=== PATIENT | female | born 1940 | race Caucasian/White ===

== ENCOUNTER 2017-10-22 17:32 | Inpatient (IN) | payer MEDICARE, OTHER ==
[2017-10-22] MEDS ORDERED: Sodium Chloride 0.9% 10 ML Syringe FLUSH PRN (20:34)
[2017-10-22] MEDS ORDERED: Iopamidol 755 Mg/ML 100 ML Bottle IVPUSH ONE (21:10)
--- NOTE | 2017-10-22 21:20 | EDM.PDOC ---
ED HPI GENERAL MEDICAL PROBLEM - General Chief Complaint: Diabetic Complaint Stated Complaint: UNABLE TO EAT AND FOOT IS INFECTED Time Seen by Provider: 10/22/17 20:20 Source of Information: Reports: Patient History Limitations: Reports: No Limitations - History of Present Illness INITIAL COMMENTS - FREE TEXT/NARRATIVE: 77-year-old female presents for evaluation and treatment and ulcer to her right foot. States that the ulcer has only been present for a few days. She did see podiatry, Dr. Shook, and was instructed to put salve on it. She has now been seeing physical therapy. She was told that it was infected today and instructed to come to the ER for antibiotics. She denies any fevers, chills, nausea or vomiting. Reports associated symptoms of decreased appetite. Reports that she has diabetic neuropathy and cannot feel any pain, numbness or tingling to the extremity. States that she had an ulcer to this area several months ago. Reports took about a month to heal. Patient is a diabetic. Sugars have been running in 200s. Primary care providers Dr. bergeron. - Related Data Allergies Allergy/AdvReac Type Severity Reaction Status Date / Time No Known Allergies Allergy Verified 10/22/17 17:59 Home Meds: Home Meds Furosemide [Lasix] 60 mg PO DAILY 11/16/13 [History] Insulin Lispro Prot/Lispro [HumaLOG Mix 75-25] 0 unit SQ DAILY PRN 11/16/13 [ History] Isosorbide Mononitrate [Imdur] 60 mg PO DAILY 11/16/13 [History] Levothyroxine [Levothroid] 137 mcg PO DAILY 11/16/13 [History] Metoprolol Tartrate 25 mg PO BID 11/16/13 [History] Rosuvastatin [Crestor] 5 mg PO DAILY 11/16/13 [History] Allopurinol [Zyloprim] 100 mg PO DAILY 07/28/14 [History] Aspirin [Halfprin] 81 mg PO DAILY 07/28/14 [History] Biotin 10,000 mcg PO DAILY 07/28/14 [History] Ca Carb & Gluc/Mag Ox & Gluc [Calcium Magnesium Caplet] 1 tab PO TID 07/28/14 [ History] Cholecalciferol (Vitamin D3) [D3-2000] 1,000 unit PO DAILY 07/28/14 [History] Linagliptin [Tradjenta] 5 mg PO DAILY 07/28/14 [History] Fenofibrate Nanocrystallized [Tricor] 145 mg PO DAILY 10/22/17 [History] Insulin Aspart [NovoLOG] 0 unit SQ WITHMEALSANDBED 10/22/17 [History] Ramipril [Altace] 5 mg PO BEDTIME 10/22/17 [History] Past Medical History HEENT History: Reports: Impaired Vision Cardiovascular History: Reports: Hypertension Other Cardiovascular History: PTCA with stent Genitourinary History: Reports: None Musculoskeletal History: Reports: Arthritis Endocrine/Metabolic History: Reports: Diabetes, Type II, Hypothyroidism Other Endocrine/Metabolic History: Hypothyroidism - Past Surgical History HEENT Surgical History: Reports: Cataract Surgery Female Surgical History: Reports: Hysterectomy Musculoskeletal Surgical History: Reports: Carpal Tunnel Other Musculoskeletal Surgeries/Procedures:: Bilateral hand carpal tunnel surgery Social & Family History - Family History Family Medical History: Noncontributory - Tobacco Use Smoking Status *Q: Former Smoker Used Tobacco, but Quit: Yes Month/Year Tobacco Last Used: 1997 - Caffeine Use Caffeine Use: Reports: Coffee Other Caffeine Use: daily - Recreational Drug Use Recreational Drug Use: No ED ROS GENERAL - Review of Systems Review Of Systems: See Below Constitutional: Denies: Fever, Chills GI/Abdominal: Denies: Nausea, Vomiting Musculoskeletal: Denies: Foot Pain Skin: Reports: Wound (Ulcer to the right foot) Neurological: Denies: Numbness, Tingling ED EXAM GENERAL NO PERIP PULSE - Physical Exam Exam: See Below Exam Limited By: No Limitations General Appearance: Alert, WD/WN, No Apparent Distress Respiratory/Chest: No Respiratory Distress, Lungs Clear, Normal Breath Sounds Cardiovascular: Normal Peripheral Pulses (1+ dorsalis pedis and posterior tib pulses bilaterally), Regular Rate, Rhythm, No Murmur Neurological: Alert, Oriented, Normal Cognition Psychiatric: Normal Affect, Normal Mood Skin Exam: Warm, Dry, Normal Color, Wound/Incision (Approximately 2 cm in diameter ulcerative wound to the ventral, medial, right foot areas purulent and draining. Surrounding erythema and swelling.) Course - Vital Signs Last Recorded V/S: Last Vital Signs Temp 98.9 F 10/22/17 17:54 Pulse 62 10/22/17 17:54 Resp 15 10/22/17 17:54 BP 113/54 L 10/22/17 17:54 Pulse Ox 93 L 10/22/17 17:54 - Orders/Labs/Meds Orders: Active Orders 24 hr Category Date Time Status Foot w Cont Rt [CT] Stat Exams 10/22/17 20:47 Taken CULTURE ANAEROBIC + SMEAR [RM] Stat Lab 10/22/17 20:52 Received CULTURE BLOOD [BC] Stat Lab 10/22/17 21:21 Received CULTURE BLOOD [BC] Stat Lab 10/22/17 21:30 Received CULTURE WOUND [RM] Stat Lab 10/22/17 20:52 Received UA W/MICROSCOPIC [URIN] Stat Lab 10/22/17 21:50 Ordered Sodium Chloride 0.9% [Saline Flush] Med 10/22/17 20:34 Active 10 ml FLUSH ASDIRECTED PRN Blood Culture x2 Reflex Set [OM.PC] Stat Oth 10/22/17 20:31 Ordered Peripheral IV Insertion Adult [OM.PC] Routine Oth 10/22/17 20:34 Ordered Medication Orders Sodium Chloride (Saline Flush) 10 ml FLUSH ASDIRECTED PRN PRN Reason: Keep Vein Open Last Admin: 10/22/17 21:08 Dose: 10 ml Labs: Laboratory Tests 10/22/17 10/22/17 10/22/17 Range/Units 19:25 20:10 21:10 WBC 9.52 (3.98-10.04) K/mm3 RBC 3.86 L (3.98-5.22) M/mm3 Hgb 11.4 (11.2-15.7) gm/L Hct 33.8 L (34.1-44.9) % MCV 87.6 (79.4-94.8) fl MCH 29.5 (25.6-32.2) pg MCHC 33.7 (32.2-35.5) g/dl RDW Std Deviation 41.4 (36.4-46.3) fL Plt Count 368 (182-369) K/mm3 MPV 8.8 L (9.4-12.3) fl Neutrophils % (Manual) 88 H (40-60) % Band Neutrophils % 0 (0-10) % Lymphocytes % (Manual) 5 L (20-40) % Atypical Lymphs % 0 % Monocytes % (Manual) 7 (2-10) % Eosinophils % (Manual) 0 L (0.7-5.8) % Basophils % (Manual) 0 L (0.1-1.2) Platelet Estimate Adequate Plt Morphology Comment Normal RBC Morph Comment Normal Sodium 133 L (136-145) mEq/L Potassium 3.9 (3.5-5.1) mEq/L Chloride 94 L (98-107) mEq/L Carbon Dioxide 31 (21-32) mEq/L Anion Gap 11.9 (5-15) BUN 47 H (7-18) mg/dL Creatinine 2.2 H (0.55-1.02) mg/dL Est Cr Clr Drug Dosing 18.10 mL/min Estimated GFR (MDRD) 22 (>60) mL/min BUN/Creatinine Ratio 21.4 H (14-18) Glucose 170 H (83-115) mg/dL POC Glucose 176 H (83-110) mg/dL Lactic Acid (0.4-2.0) mmol/L Calcium 9.3 (8.5-10.1) mg/dL Total Bilirubin 0.4 (0.2-1.0) mg/dL AST 37 (15-37) U/L ALT 25 (14-59) U/L Alkaline Phosphatase 50 (46-116) U/L C-Reactive Protein 28.2 H* (<1.0) mg/dL Total Protein 7.6 (6.4-8.2) g/dl Albumin 2.7 L (3.4-5.0) g/dl Globulin 4.9 gm/dL Albumin/Globulin Ratio 0.6 L (1-2) Urine Color (Yellow) Urine Appearance (Clear) Urine pH (5.0-8.0) Ur Specific Comins (1.005-1.030) Urine Protein (Negative) Urine Glucose (UA) (Negative) Urine Ketones (Negative) Urine Occult Blood (Negative) Urine Nitrite (Negative) Urine Bilirubin (Negative) Urine Urobilinogen (0.2-1.0) Ur Leukocyte Esterase (Negative) Urine RBC (0-5) /hpf Urine WBC (0-5) /hpf Ur Epithelial Cells (0-5) /hpf Urine Bacteria (FEW) /hpf Urine Mucus (FEW) /hpf 10/22/17 10/22/17 Range/Units 21:10 21:50 WBC (3.98-10.04) K/mm3 RBC (3.98-5.22) M/mm3 Hgb (11.2-15.7) gm/L Hct (34.1-44.9) % MCV (79.4-94.8) fl MCH (25.6-32.2) pg MCHC (32.2-35.5) g/dl RDW Std Deviation (36.4-46.3) fL Plt Count (182-369) K/mm3 MPV (9.4-12.3) fl Neutrophils % (Manual) (40-60) % Band Neutrophils % (0-10) % Lymphocytes % (Manual) (20-40) % Atypical Lymphs % % Monocytes % (Manual) (2-10) % Eosinophils % (Manual) (0.7-5.8) % Basophils % (Manual) (0.1-1.2) Platelet Estimate Plt Morphology Comment RBC Morph Comment Sodium (136-145) mEq/L Potassium (3.5-5.1) mEq/L Chloride (98-107) mEq/L Carbon Dioxide (21-32) mEq/L Anion Gap (5-15) BUN (7-18) mg/dL Creatinine (0.55-1.02) mg/dL Est Cr Clr Drug Dosing mL/min Estimated GFR (MDRD) (>60) mL/min BUN/Creatinine Ratio (14-18) Glucose (83-115) mg/dL POC Glucose (83-110) mg/dL Lactic Acid 1.4 (0.4-2.0) mmol/L Calcium (8.5-10.1) mg/dL Total Bilirubin (0.2-1.0) mg/dL AST (15-37) U/L ALT (14-59) U/L Alkaline Phosphatase (46-116) U/L C-Reactive Protein (<1.0) mg/dL Total Protein (6.4-8.2) g/dl Albumin (3.4-5.0) g/dl Globulin gm/dL Albumin/Globulin Ratio (1-2) Urine Color Yellow (Yellow) Urine Appearance Clear (Clear) Urine pH 6.0 (5.0-8.0) Ur Specific Comins 1.015 (1.005-1.030) Urine Protein Negative (Negative) Urine Glucose (UA) Negative (Negative) Urine Ketones Negative (Negative) Urine Occult Blood 2+ H (Negative) Urine Nitrite Negative (Negative) Urine Bilirubin Negative (Negative) Urine Urobilinogen 0.2 (0.2-1.0) Ur Leukocyte Esterase 1+ H (Negative) Urine RBC 0-5 (0-5) /hpf Urine WBC 0-5 (0-5) /hpf Ur Epithelial Cells 0-5 (0-5) /hpf Urine Bacteria Few (FEW) /hpf Urine Mucus Not seen (FEW) /hpf Meds: Medications Generic Name Dose Route Start Last Admin Trade Name Freq PRN Reason Stop Dose Admin Sodium Chloride 10 ml 10/22/17 20:34 10/22/17 21:08 Saline Flush FLUSH 10 ml ASDIRECTED PRN Administration Keep Vein Open Discontinued Medications Generic Name Dose Route Start Last Admin Trade Name Freq PRN Reason Stop Dose Admin Sodium Chloride 1,000 mls @ 999 mls/hr 10/22/17 21:54 10/22/17 23:44 Normal Saline IV 10/22/17 22:54 999 mls/hr ONETIME ONE Administration Vancomycin HCl 1.75 gm/ Sodium 500 mls @ 250 mls/hr 10/22/17 22:30 Chloride IV 10/23/17 00:29 ONETIME ONE Vancomycin HCl 1 gm/ Sodium 250 mls @ 250 mls/hr 10/22/17 23:11 10/22/17 23: 44 Chloride IV 10/23/17 00:10 250 mls/hr ONETIME ONE Administration Piperacillin Sod/Tazobactam 100 mls @ 200 mls/hr 10/22/17 23:21 Sod 2.25 gm/ Sodium Chloride IV 10/22/17 23:50 ONETIME ONE Iopamidol 100 ml 10/22/17 21:10 10/22/17 23:07 [id number] (76%) IVPUSH 10/22/17 21:11 100 ml ONETIME ONE Administration - Radiology Interpretation Free Text/Narrative:: CT of the right foot with IV contrast impression per vrad: Large medial ulcer of the forefoot with possible exposed bone noted at the region of the first metatarsal head. Erosion of the first metatarsal head suggesting osteomyelitis. Diffuse soft tissue swelling. No evidence for foreign body. - Re-Assessments/Exams Free Text/Narrative Re-Assessment/Exam: 10/23/17 01:01 I reviewed the labs with the patient. I feel she should be admitted for cellulitis. May require debribement. Likely osteomyelitis. She has received 1 g IV vancomycin. This was corrected from the initial dose of 1.75 g, change due to poor kidney function. Case discussed with Dr. Resendiz, hospitalist on-call. Asked that we add on Zosyn. Will give 2.25g Zosyn for poor renal function. Patient to be admitted to the hospitalist. Will likely have an MRI in the morning. Departure - Departure Time of Disposition: 01:04 Disposition: Admitted As Inpatient 66 Condition: Fair Clinical Impression: Cellulitis, Osteomyelitis, Diabetes - Discharge Information *PRESCRIPTION DRUG MONITORING PROGRAM REVIEWED*: No *COPY OF PRESCRIPTION DRUG MONITORING REPORT IN PATIENT JOO: No - My Orders Last 24 Hours: My Active Orders 10/22/17 20:31 Blood Culture x2 Reflex Set [OM.PC] Stat 10/22/17 20:34 Sodium Chloride 0.9% [Saline Flush] 10 ml FLUSH ASDIRECTED PRN Peripheral IV Insertion Adult [OM.PC] Routine 10/22/17 20:47 Foot w Cont Rt [CT] Stat 10/22/17 20:52 CULTURE ANAEROBIC + SMEAR [RM] Stat CULTURE WOUND [RM] Stat 10/22/17 21:21 CULTURE BLOOD [BC] Stat 10/22/17 21:30 CULTURE BLOOD [BC] Stat 10/22/17 21:50 UA W/MICROSCOPIC [URIN] Stat - Assessment/Plan Last 24 Hours: My Active Orders 10/22/17 20:31 Blood Culture x2 Reflex Set [OM.PC] Stat 10/22/17 20:34 Sodium Chloride 0.9% [Saline Flush] 10 ml FLUSH ASDIRECTED PRN Peripheral IV Insertion Adult [OM.PC] Routine 10/22/17 20:47 Foot w Cont Rt [CT] Stat 10/22/17 20:52 CULTURE ANAEROBIC + SMEAR [RM] Stat CULTURE WOUND [RM] Stat 10/22/17 21:21 CULTURE BLOOD [BC] Stat 10/22/17 21:30 CULTURE BLOOD [BC] Stat 10/22/17 21:50 UA W/MICROSCOPIC [URIN] Stat
[2017-10-22] MEDS ORDERED: Sodium Chloride 0.9% 1,000 ML IV ONE (21:54)
[2017-10-22] MEDS ORDERED: Vancomycin 1.75 GM in Sodium Chloride 0.9% 500 ML IV ONE (22:30)
[2017-10-22] MEDS ORDERED: Piperacillin/Tazobactam 2.25 GM in Sodium Chloride 0.9% 100 ML IV ONE (23:21)
--- NOTE | 2017-10-23 06:57 | PCM.HP ---
H&P History of Present Illness - General Date of Service: 10/23/17 Admit Problem/Dx: Admission Diagnosis/Problem Admission Diagnosis/Problem Cellulitis Source of Information: Patient, Old Records, Provider, RN History Limitations: Reports: No Limitations - History of Present Illness Initial Comments - Free Text/Narative: Sydnee Perez is a 77 yo female who presented to our ED yesterday evening with an ulcer to her right reports that she saw Dr. Kat prior and has been doing that with this for some time. She reports he had been having her put a salve on it and she had been seeing physical therapy. She reports that it had been improving prior, however it became worse the last few days and prior to reporting the ED was told that it looked infected and she needed to be seen for antibiotics. She denied any fever, chills, nausea, vomiting. She did report a decreased appetite. She reports she has fairly severe diabetic neuropathy and has no sensation to either leg. Denies any numbness or tingling. She is a diabetic and reports her sugars are normally in the 200s. On arrival in the ED temp was 98.9. Pulse 62. Respirations 15. BP 113/54. Pulse ox 93%. She was noted to have a 2 cm ulcerative wound to the ventral medial right foot with purulent drainage. There is also associated surrounding erythema and swelling. Labs are obtained: WBC is normal at 9.52. Hemoglobin 11.4. Hematocrit 33.8. She is normocytic. Plus her normal 368,000. Neutrophils were elevated at 88%. There is no bandemia. Sodium was low at 133. Potassium 3.9. Chloride 94. Carbon dioxide 31. Anion gap 11.9. BUN is high at 47. Creatinine is very high at 2.2. EGFR is 22. Glucose is 170. Calcium is 9.3. Total bilirubin 0.4. AST is 37 ALT 25, alkaline phosphatase 50. CRP is very high at 20.2. Albumin is low at 2.7. It is 1.4. UA is negative however 2+ occult blood and 1+ leukoesterase are noted. Few bacteria are seen. She is given a 1 L fluid bolus. She was started on vancomycin and Zosyn. CT of the foot is obtained and interpreted by Dr. Reddy as "1. Soft tissue swelling compatible with cellulitis. Ulcers noted within the medial foot at the level of the first metatarsal. 2. Erosions within the distal first metatarsal head as well as base of the proximal phalanx of the first toe. These erosions are compatible with osteomyelitis. 3. Osteopenia and degenerative change." He carries a history of: Hypertension, PTCA with stent, arthritis, type II DM, hypothyroidism. She is a former smoker who quit in 1987. Her PCP is Dr. Ty. She is subsequently admitted to the medical floor as a full code. - Related Data Allergies/Adverse Reactions: Allergies Allergy/AdvReac Type Severity Reaction Status Date / Time No Known Allergies Allergy Verified 10/22/17 17:59 Home Medications: Home Meds Furosemide [Lasix] 60 mg PO DAILY 11/16/13 [History] Insulin Lispro Prot/Lispro [HumaLOG Mix 75-25] 0 unit SQ DAILY PRN 11/16/13 [ History] Isosorbide Mononitrate [Imdur] 60 mg PO DAILY 11/16/13 [History] Levothyroxine [Levothroid] 137 mcg PO DAILY 11/16/13 [History] Metoprolol Tartrate 25 mg PO BID 11/16/13 [History] Rosuvastatin [Crestor] 5 mg PO DAILY 11/16/13 [History] Allopurinol [Zyloprim] 100 mg PO DAILY 07/28/14 [History] Aspirin [Halfprin] 81 mg PO DAILY 07/28/14 [History] Biotin 10,000 mcg PO DAILY 07/28/14 [History] Ca Carb & Gluc/Mag Ox & Gluc [Calcium Magnesium Caplet] 1 tab PO TID 07/28/14 [ History] Cholecalciferol (Vitamin D3) [D3-2000] 1,000 unit PO DAILY 07/28/14 [History] Linagliptin [Tradjenta] 5 mg PO DAILY 07/28/14 [History] Fenofibrate Nanocrystallized [Tricor] 145 mg PO DAILY 10/22/17 [History] Insulin Aspart [NovoLOG] 0 unit SQ WITHMEALSANDBED 10/22/17 [History] Ramipril [Altace] 5 mg PO BEDTIME 10/22/17 [History] Clopidogrel [Plavix] 75 mg PO DAILY 10/23/17 [History] Insulin Glarg,Human.Rec.Analog [Lantus] 0 unit SUBCUT DAILY 10/23/17 [History] Insulin Glarg,Human.Rec.Analog [Lantus] 10 unit SUBCUT 1700 10/23/17 [History] Insulin Glarg,Human.Rec.Analog [Lantus] 50 unit SUBCUT 1100 10/23/17 [History] traMADol [Ultram] 100 mg PO TID 10/23/17 [History] Past Medical History HEENT History: Reports: Impaired Vision Cardiovascular History: Reports: Hypertension Other Cardiovascular History: PTCA with stent Gastrointestinal History: Reports: None Genitourinary History: Reports: None Other Genitourinary History: "poor kidney function" 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: Musculoskeletal History: Reports: Arthritis Neurological History: Reports: Neuropathy, Diabetic Endocrine/Metabolic History: Reports: Diabetes, Type II, Hypothyroidism Other Endocrine/Metabolic History: Hypothyroidism Immunologic History: Reports: None Dermatologic History: Reports: Other (See Below) Other Dermatologic History: diabetic ulcer - Infectious Disease History Infectious Disease History: Reports: None - Past Surgical History HEENT Surgical History: Reports: Cataract Surgery Female Surgical History: Reports: Hysterectomy Musculoskeletal Surgical History: Reports: Carpal Tunnel Other Musculoskeletal Surgeries/Procedures:: Bilateral hand carpal tunnel surgery Social & Family History - Family History Family Medical History: Noncontributory - Tobacco Use Smoking Status *Q: Former Smoker Years of Tobacco use: 17 Packs/Tins Daily: 1 Used Tobacco, but Quit: Yes Month/Year Tobacco Last Used: 1997 Second Hand Smoke Exposure: No - Caffeine Use Caffeine Use: Reports: Coffee Other Caffeine Use: daily - Recreational Drug Use Recreational Drug Use: No H&P Review of Systems - Review of Systems: Review Of Systems: See Below General: Reports: Decreased Appetite. Denies: Fever, Chills, Malaise, Weakness , Fatigue HEENT: Reports: Post Nasal Drip (chronic ). Denies: Headaches, Sore Throat Pulmonary: Reports: No Symptoms. Denies: Shortness of Breath, Wheezing, Pleuritic Chest Pain, Cough, Sputum Cardiovascular: Reports: No Symptoms. Denies: Chest Pain, Palpitations, Dyspnea on Exertion, Orthopnea, Lightheadedness Gastrointestinal: Reports: No Symptoms. Denies: Abdominal Pain, Constipation, Diarrhea, Nausea, Vomiting Genitourinary: Reports: No Symptoms Musculoskeletal: Reports: No Symptoms, Other (Reports no feeling in legs due to peripheral neuropathy). Denies: Leg Pain, Foot Pain, Joint Pain Skin: Reports: No Symptoms Psychiatric: Reports: No Symptoms Neurological: Reports: No Symptoms Hematologic/Lymphatic: Reports: No Symptoms Immunologic: Reports: No Symptoms Exam - Exam Exam: See Below - Vital Signs Vital Signs: Last Vital Signs Temp 99.0 F 10/23/17 03:57 Pulse 67 10/23/17 03:57 Resp 16 10/23/17 03:57 BP 125/81 10/23/17 03:57 Pulse Ox 98 10/23/17 03:57 Weight: 168 lb 8 oz - Exam Quality Assessment: DVT Prophylaxis General: Alert, Oriented, Cooperative. No: Mild Distress HEENT: Conjunctiva Clear, EACs Clear, EOMI, Hearing Intact, Mucosa Moist & [place] , Nares Patent, Normal Nasal Septum, Posterior Pharynx Clear, PERRLA Neck: Supple, Trachea Midline Lungs: Clear to Auscultation, Normal Respiratory Effort Cardiovascular: Regular Rate, Regular Rhythm GI/Abdominal Exam: Normal Bowel Sounds, Soft, Non-Tender, No Distention (Female) Exam: Deferred Rectal (Female) Exam: Deferred Back Exam: Normal Inspection, Full Range of Motion Extremities: Non-Tender, No Pedal Edema, Normal Capillary Refill, Increased Warmth (right medial foot), Redness (right medial foot ), Other (Color changes felt to be compatable with chronic periphreal vascular disease ) Peripheral Pulses: 1+: Dorsalis Pedis (L), Dorsalis Pedis (R), 2+: Radial (L), Radial (R) Skin: Warm, Dry, Intact, Wound (2cm purulent draining wound on the ventral, medial, right great toe and foot. 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 ) - Patient Data Lab Results Last 24 hrs: Laboratory Results - last 24 hr 10/22/17 10/22/17 10/22/17 Range/Units 19:25 20:10 21:10 WBC 9.52 (3.98-10.04) K/mm3 RBC 3.86 L (3.98-5.22) M/mm3 Hgb 11.4 (11.2-15.7) gm/L Hct 33.8 L (34.1-44.9) % MCV 87.6 (79.4-94.8) fl MCH 29.5 (25.6-32.2) pg MCHC 33.7 (32.2-35.5) g/dl RDW Std Deviation 41.4 (36.4-46.3) fL Plt Count 368 (182-369) K/mm3 MPV 8.8 L (9.4-12.3) fl Neut % (Auto) (34.0-71.1) % Lymph % (Auto) (19.3-51.7) % [place] % (Auto) (4.7-12.5) % Eos % (Auto) (0.7-5.8) Baso % (Auto) (0.1-1.2) % Neut # (Auto) (1.56-6.13) K/mm3 Lymph # (Auto) (1.18-3.74) K/mm3 [place] # (Auto) (0.24-0.36) K/mm3 Eos # (Auto) (0.04-0.36) K/mm3 Baso # (Auto) (0.01-0.08) K/mm3 Neutrophils % (Manual) 88 H (40-60) % Band Neutrophils % 0 (0-10) % Lymphocytes % (Manual) 5 L (20-40) % Atypical Lymphs % 0 % Monocytes % (Manual) 7 (2-10) % Eosinophils % (Manual) 0 L (0.7-5.8) % Basophils % (Manual) 0 L (0.1-1.2) Manual Slide Review Platelet Estimate Adequate Plt Morphology Comment Normal RBC Morph Comment Normal Sodium 133 L (136-145) mEq/L Potassium 3.9 (3.5-5.1) mEq/L Chloride 94 L (98-107) mEq/L Carbon Dioxide 31 (21-32) mEq/L Anion Gap 11.9 (5-15) BUN 47 H (7-18) mg/dL Creatinine 2.2 H (0.55-1.02) mg/dL Est Cr Clr Drug Dosing 18.10 mL/min Estimated GFR (MDRD) 22 (>60) mL/min BUN/Creatinine Ratio 21.4 H (14-18) Glucose 170 H (83-115) mg/dL POC Glucose 176 H (83-110) mg/dL Lactic Acid (0.4-2.0) mmol/L Calcium 9.3 (8.5-10.1) mg/dL Total Bilirubin 0.4 (0.2-1.0) mg/dL AST 37 (15-37) U/L ALT 25 (14-59) U/L Alkaline Phosphatase 50 (46-116) U/L C-Reactive Protein 28.2 H* (<1.0) mg/dL Total Protein 7.6 (6.4-8.2) g/dl Albumin 2.7 L (3.4-5.0) g/dl Globulin 4.9 gm/dL Albumin/Globulin Ratio 0.6 L (1-2) Urine Color (Yellow) Urine Appearance (Clear) Urine pH (5.0-8.0) Ur Specific [place] (1.005-1.030) Urine Protein (Negative) Urine Glucose (UA) (Negative) Urine Ketones (Negative) Urine Occult Blood (Negative) Urine Nitrite (Negative) Urine Bilirubin (Negative) Urine Urobilinogen (0.2-1.0) Ur Leukocyte Esterase (Negative) Urine RBC (0-5) /hpf Urine WBC (0-5) /hpf Ur Epithelial Cells (0-5) /hpf Urine Bacteria (FEW) /hpf Urine Mucus (FEW) /hpf 10/22/17 10/22/17 10/23/17 Range/Units 21:10 21:50 05:08 WBC (3.98-10.04) K/mm3 RBC (3.98-5.22) M/mm3 Hgb (11.2-15.7) gm/L Hct (34.1-44.9) % MCV (79.4-94.8) fl MCH (25.6-32.2) pg MCHC (32.2-35.5) g/dl RDW Std Deviation (36.4-46.3) fL Plt Count (182-369) K/mm3 MPV (9.4-12.3) fl Neut % (Auto) (34.0-71.1) % Lymph % (Auto) (19.3-51.7) % [place] % (Auto) (4.7-12.5) % Eos % (Auto) (0.7-5.8) Baso % (Auto) (0.1-1.2) % Neut # (Auto) (1.56-6.13) K/mm3 Lymph # (Auto) (1.18-3.74) K/mm3 [place] # (Auto) (0.24-0.36) K/mm3 Eos # (Auto) (0.04-0.36) K/mm3 Baso # (Auto) (0.01-0.08) K/mm3 Neutrophils % (Manual) (40-60) % Band Neutrophils % (0-10) % Lymphocytes % (Manual) (20-40) % Atypical Lymphs % % Monocytes % (Manual) (2-10) % Eosinophils % (Manual) (0.7-5.8) % Basophils % (Manual) (0.1-1.2) Manual Slide Review Platelet Estimate Plt Morphology Comment RBC Morph Comment Sodium (136-145) mEq/L Potassium (3.5-5.1) mEq/L Chloride (98-107) mEq/L Carbon Dioxide (21-32) mEq/L Anion Gap (5-15) BUN (7-18) mg/dL Creatinine (0.55-1.02) mg/dL Est Cr Clr Drug Dosing mL/min Estimated GFR (MDRD) (>60) mL/min BUN/Creatinine Ratio (14-18) Glucose (83-115) mg/dL POC Glucose (83-110) mg/dL Lactic Acid 1.4 0.9 (0.4-2.0) mmol/L Calcium (8.5-10.1) mg/dL Total Bilirubin (0.2-1.0) mg/dL AST (15-37) U/L ALT (14-59) U/L Alkaline Phosphatase (46-116) U/L C-Reactive Protein (<1.0) mg/dL Total Protein (6.4-8.2) g/dl Albumin (3.4-5.0) g/dl Globulin gm/dL Albumin/Globulin Ratio (1-2) Urine Color Yellow (Yellow) Urine Appearance Clear (Clear) Urine pH 6.0 (5.0-8.0) Ur Specific [place] 1.015 (1.005-1.030) Urine Protein Negative (Negative) Urine Glucose (UA) Negative (Negative) Urine Ketones Negative (Negative) Urine Occult Blood 2+ H (Negative) Urine Nitrite Negative (Negative) Urine Bilirubin Negative (Negative) Urine Urobilinogen 0.2 (0.2-1.0) Ur Leukocyte Esterase 1+ H (Negative) Urine RBC 0-5 (0-5) /hpf Urine WBC 0-5 (0-5) /hpf Ur Epithelial Cells 0-5 (0-5) /hpf Urine Bacteria Few (FEW) /hpf Urine Mucus Not seen (FEW) /hpf 10/23/17 10/23/17 Range/Units 05:16 06:30 WBC 8.16 (3.98-10.04) K/mm3 RBC 3.52 L (3.98-5.22) M/mm3 Hgb 10.1 L (11.2-15.7) gm/L Hct 30.9 L (34.1-44.9) % MCV 87.8 (79.4-94.8) fl MCH 28.7 (25.6-32.2) pg MCHC 32.7 (32.2-35.5) g/dl RDW Std Deviation 41.0 (36.4-46.3) fL Plt Count 331 (182-369) K/mm3 MPV 9.1 L (9.4-12.3) fl Neut % (Auto) 71.5 H (34.0-71.1) % Lymph % (Auto) 11.8 L (19.3-51.7) % [place] % (Auto) 15.9 H (4.7-12.5) % Eos % (Auto) 0.5 L (0.7-5.8) Baso % (Auto) 0.1 (0.1-1.2) % Neut # (Auto) 5.83 (1.56-6.13) K/mm3 Lymph # (Auto) 0.96 L (1.18-3.74) K/mm3 [place] # (Auto) 1.30 H (0.24-0.36) K/mm3 Eos # (Auto) 0.04 (0.04-0.36) K/mm3 Baso # (Auto) 0.01 (0.01-0.08) K/mm3 Neutrophils % (Manual) (40-60) % Band Neutrophils % (0-10) % Lymphocytes % (Manual) (20-40) % Atypical Lymphs % % Monocytes % (Manual) (2-10) % Eosinophils % (Manual) (0.7-5.8) % Basophils % (Manual) (0.1-1.2) Manual Slide Review Normal smear Platelet Estimate Plt Morphology Comment RBC Morph Comment Sodium (136-145) mEq/L Potassium (3.5-5.1) mEq/L Chloride (98-107) mEq/L Carbon Dioxide (21-32) mEq/L Anion Gap (5-15) BUN (7-18) mg/dL Creatinine (0.55-1.02) mg/dL Est Cr Clr Drug Dosing mL/min Estimated GFR (MDRD) (>60) mL/min BUN/Creatinine Ratio (14-18) Glucose (83-115) mg/dL POC Glucose 191 H (83-110) mg/dL Lactic Acid (0.4-2.0) mmol/L Calcium (8.5-10.1) mg/dL Total Bilirubin (0.2-1.0) mg/dL AST (15-37) U/L ALT (14-59) U/L Alkaline Phosphatase (46-116) U/L C-Reactive Protein (<1.0) mg/dL Total Protein (6.4-8.2) g/dl Albumin (3.4-5.0) g/dl Globulin gm/dL Albumin/Globulin Ratio (1-2) Urine Color (Yellow) Urine Appearance (Clear) Urine pH (5.0-8.0) Ur Specific [place] (1.005-1.030) Urine Protein (Negative) Urine Glucose (UA) (Negative) Urine Ketones (Negative) Urine Occult Blood (Negative) Urine Nitrite (Negative) Urine Bilirubin (Negative) Urine Urobilinogen (0.2-1.0) Ur Leukocyte Esterase (Negative) Urine RBC (0-5) /hpf Urine WBC (0-5) /hpf Ur Epithelial Cells (0-5) /hpf Urine Bacteria (FEW) /hpf Urine Mucus (FEW) /hpf Result Diagrams: 10/23/17 05:16 10/23/17 05:16 - Problem List (1) Osteomyelitis SNOMED Code(s): 00820867 ICD Code: M86.9 - OSTEOMYELITIS, UNSPECIFIED Status: Suspected Priority: High Current Visit: Yes Qualifiers: Osteomyelitis type: unspecified type Osteomyelitis location: foot Laterality: right Qualified Code(s): M86.9 - Osteomyelitis, unspecified (2) Cellulitis SNOMED Code(s): 276330267 ICD Code: L03.90 - CELLULITIS, UNSPECIFIED Status: Acute Priority: High Current Visit: Yes Qualifiers: Site of cellulitis of extremity: lower extremity Laterality: right (3) HTN (hypertension) SNOMED Code(s): 41751938 ICD Code: I10 - ESSENTIAL (PRIMARY) HYPERTENSION Status: Chronic Priority : Medium Current Visit: No Qualifiers: Hypertension type: unspecified Qualified Code(s): I10 - Essential (primary ) hypertension (4) CAD (coronary artery disease) SNOMED Code(s): 55718388 ICD Code: I25.10 - ATHSCL HEART DISEASE OF [place] CORONARY ARTERY W/O ANG PCTRS Status: Chronic Priority: Medium Current Visit: No Qualifiers: Coronary Disease-Associated Artery/Lesion type: unspecified vessel or lesion type [place] vs. transplanted heart: unspecified whether [place] or transplanted heart Associated angina: angina presence unspecified Qualified Code(s): I25.10 - Atherosclerotic heart disease of [place] coronary artery without angina pectoris (5) Arthritis SNOMED Code(s): 9411701 ICD Code: M19.90 - UNSPECIFIED OSTEOARTHRITIS, UNSPECIFIED SITE Status: Chronic Priority: Low Current Visit: No (6) Hypothyroidism SNOMED Code(s): 70902593 ICD Code: E03.9 - HYPOTHYROIDISM, UNSPECIFIED Status: Chronic Priority: Low Current Visit: No Qualifiers: Hypothyroidism type: unspecified Qualified Code(s): E03.9 - Hypothyroidism , unspecified (7) Diabetes SNOMED Code(s): 46724852 ICD Code: E11.9 - TYPE 2 DIABETES MELLITUS WITHOUT COMPLICATIONS Status: Chronic Priority: Medium Current Visit: Yes Qualifiers: Diabetes mellitus type: type 2 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 Diabetes mellitus complication status: with neurologic complications Diabetes mellitus complication detail: with unspecified neuropathy Qualified Code(s): E11.40 - Type 2 diabetes mellitus with diabetic neuropathy, unspecified; Z79.4 - intermediate accountant (current) use of insulin (8) Peripheral neuropathy SNOMED Code(s): 287956969 ICD Code: G62.9 - POLYNEUROPATHY, UNSPECIFIED Status: Chronic Priority: High Current Visit: Yes Qualifiers: Peripheral neuropathy type: polyneuropathy, unspecified Qualified Code(s): G62.9 - Polyneuropathy, unspecified (9) CKD (chronic kidney disease) stage 4, GFR 15-29 ml/min SNOMED Code(s): 754448387 ICD Code: N18.4 - CHRONIC KIDNEY DISEASE, STAGE 4 (SEVERE) Status: Acute Current Visit: Yes (10) Hyponatremia SNOMED Code(s): 39690889 ICD Code: E87.1 - HYPO-OSMOLALITY AND HYPONATREMIA Status: Acute Current Visit: Yes Problem List Initiated/Reviewed/Updated: Yes Orders Last 24hrs: Active Orders 24 hr Category Date Time Status Admission Status [Patient Status] [ADT] Routine ADT 10/22/17 23:29 Active Activity as Tolerated [RC] BID Care 10/23/17 01:23 Active Blood Glucose Check, Bedside [RC] QIDACANDBED Care 10/23/17 01:19 Active ADA Diabetic [[place] [employer] Diet] [DIET Diet 10/23/17 Breakfast Active ] Heart Healthy Diet [DIET] Diet 10/23/17 Breakfast Active Foot w Cont Rt [CT] Stat Exams 10/22/17 20:47 Taken BASIC METABOLIC PANEL,BMP [CHEM] Routine Lab 10/23/17 05:16 Received CRP [C-REACTIVE PROTEIN] [CHEM] Routine Lab 10/23/17 05:16 Received CULTURE ANAEROBIC + SMEAR [RM] Stat Lab 10/22/17 20:52 Received CULTURE BLOOD [BC] Stat Lab 10/22/17 21:21 Received CULTURE BLOOD [BC] Stat Lab 10/22/17 21:30 Received CULTURE WOUND [RM] Stat Lab 10/22/17 20:52 Received MG [MAGNESIUM] [CHEM] Routine Lab 10/23/17 05:16 Received UA W/MICROSCOPIC [URIN] Stat Lab 10/22/17 21:50 Ordered Enoxaparin [Lovenox] Med 10/23/17 09:00 Pending 40 mg SUBCUT DAILY Insulin Lispro [HumaLOG] Med 10/23/17 07:00 Active See Dose Instructions SUBCUT QIDACANDBED Piperacillin/Tazobactam [Zosyn] 4.5 gm Med 10/23/17 13:30 Active Sodium Chloride 0.9% [Normal Saline] 100 ml IV Q12H Sodium Chloride 0.9% [Saline Flush] Med 10/22/17 20:34 Active 10 ml FLUSH ASDIRECTED PRN Vancomycin Pharmacy to Dose [Pharmacy to Dose - Med 10/23/17 01:30 Pending Vancomycin] 1 dose .XX ASDIRECTED Blood Culture x2 Reflex Set [OM.PC] Stat Oth 10/22/17 20:31 Ordered Peripheral IV Insertion Adult [OM.PC] Routine Oth 10/22/17 20:34 Ordered Resuscitation Status Routine Resus Stat 10/23/17 00:48 Ordered Medication Orders Enoxaparin Sodium (Lovenox) 40 mg SUBCUT DAILY [facility] Piperacillin Sod/Tazobactam (Sod 4.5 gm/ Sodium Chloride) 100 mls @ 25 mls/hr IV Q12H [facility] Insulin Human Lispro (Humalog) 0 unit SUBCUT QIDACANDBED [facility]IANO; Protocol Sodium Chloride (Saline Flush) 10 ml FLUSH ASDIRECTED PRN PRN Reason: Keep Vein Open Last Admin: 10/22/17 21:08 Dose: 10 ml Vancomycin HCl (Pharmacy To Dose - Vancomycin) 1 dose .XX ASDIRECTED [facility] Assessment/Plan Comment:: I/P: Cellulitis of right foot with suspected osteomyelitis -Reports she has had ulcers on right ventral and medial right foot prior -Has been seeing Dr. Brown (podiatry) for this - he prescribed a salve -Has been seeing PT for woundcare -Denies fever or any other infectious symptoms, however has had decreased appetite -Approximately 2cm wound with purulent drainage. -Risk factors: Diabetic, history of CAD, peripheral neuropathy with no sensation to either leg -Blood sugars have been in the 200's; A1C 7.7 -No leukocytosis, CRP 28.2-->20.5 -Lactic acid WNL -Blood cultures obtained and pending -Wound cultures obtained and pending -Vancomycin and zosyn started in ED - continue -CT Scan on 10/22/17: 1. Soft tissue swelling compatible with cellulitis. Ulcers noted within the medial foot at the level of first metatarsal. 2. Erosions within the distal first metatarsal head as well as the basal proximal found except of the first toe. These erosions are compatible with osteomyelitis. 3. Osteopenia and degenerative change. -MRI ordered for 10/23/17 -Probiotic -Wound care daily as directed -PT/OT -Dr. Beckett (orthopedics) consulted CKD stage 4 -Unsure of baseline - obtain old records -BUN 47-->42 -Creatinine 2.2-->2.0 -eGFR 22-->24 -Will switch from lovenox to heparin -Hold ACEI -Home PO lasix for now -IV fluids as ordered Hyponatremia, mild -Sodium 133-->134 -IV fluids as ordered -Monitor Chronic: CAD HTN Arthritis Type II DM Hypothyroidism Plan: Admit to medical floor Other orders as indicated above SS insulin in addition to home long acting insulin Home medications as ordered Routine AM labs Contact precautions Obtain old records DVT/PE Prophylaxis: Heparin Code status: Full code; PCP: Dr. Ty
[2017-10-23] MEDS ORDERED: Piperacillin/Tazobactam 4.5 GM in Sodium Chloride 0.9% 100 ML IV SCH (07:00)
--- NOTE | 2017-10-23 08:13 | CT ---
CT right foot Technique: Multiple axial sections through the right foot were obtained. Reconstructed coronal and sagittal images were reviewed. Findings: Severe joint space narrowing is noted within the midfoot and particularly at the tarsometatarsal joints. Diffuse soft tissue swelling is seen within the foot. Soft tissue ulceration is identified within the medial foot at the level of the first metatarsal head. There is erosion being seen within the metatarsal head with cortical destruction at the level of the ulcer which is felt compatible with osteomyelitis. Additional erosions are seen at the base of the proximal phalanx which is felt compatible with additional area of osteomyelitis. Other bony structures are osteopenic but show no acute erosions. Plantar spur is noted. Impression: 1. Soft tissue swelling compatible with cellulitis. Ulcer is noted within the medial foot at the level of the first metatarsal. 2. Erosions within the distal first metatarsal head as well as base of the proximal phalanx of the first toe. These erosions are compatible with osteomyelitis. 3. Osteopenia and degenerative change. Diagnostic code #5 Agree with preliminary report issued by [facility] ([facility] preliminary report dictated on 10/23/17, 12:57 AM Central Time) [facility]
[2017-10-23] MEDS: Insulin Lispro 100 Unit/ML 3 ML KwikPen SUBCUT SCH ×4 (08:16→21:25)
[2017-10-23] MEDS ORDERED: Ondansetron 4 MG Tab.DIS PO PRN (08:37)
[2017-10-23] MEDS ORDERED: Acetaminophen 325 MG Tab PO PRN (08:37)
[2017-10-23] MEDS ORDERED: Ondansetron 4 MG/2 ML SDV IV PRN (08:37)
[2017-10-23] MEDS ORDERED: Acetaminophen/HYDROcodone 325-5 MG Tab PO PRN (08:37)
[2017-10-23] MEDS ORDERED: hydrALAZINE 20 MG/ML SDV IVPUSH PRN (08:40)
[2017-10-23] MEDS ORDERED: Metoprolol Tartrate 5 MG/5 ML SDV IVPUSH PRN (08:40)
[2017-10-23] MEDS ORDERED: Enoxaparin 30 MG/0.3 ML Syringe SUBCUT SCH (09:00)
[2017-10-23] MEDS: Sodium Chloride 0.9% 1,000 ML IV SCH (09:15)
[2017-10-23] MEDS: Metoprolol Tartrate 25 MG Tab PO SCH ×2 (09:24→21:25)
[2017-10-23] MEDS: Fenofibrate Nanocrystallized 145 MG Tab PO SCH (09:24)
[2017-10-23] MEDS: Furosemide 40 MG Tab PO SCH (09:25)
[2017-10-23] MEDS: Clopidogrel 75 MG Tab PO SCH (09:25)
[2017-10-23] MEDS: Saccharomyces Boulardii (Probiotic) 250 MG Cap PO SCH (09:25)
[2017-10-23] MEDS: Rosuvastatin 10 MG Tab PO SCH (09:26)
[2017-10-23] MEDS: Aspirin 81 MG Tab.EC PO SCH (09:26)
[2017-10-23] MEDS: Isosorbide Mononitrate 60 MG Tab.ER PO SCH (09:26)
[2017-10-23] MEDS: Allopurinol 100 MG Tab PO SCH (09:26)
[2017-10-23] MEDS: Insulin Glargine,Human Rec. Analog 100 Units/ML 3 ML Pen SUBCUT SCH ×2 (12:01→17:24)
[2017-10-23] MEDS ORDERED: LORazepam 2 MG/ML SDV IVPUSH PRN (13:42)
[2017-10-23] MEDS ORDERED: traMADol 50 MG Tab PO PRN (15:00)
[2017-10-23] MEDS: Piperacillin/Tazobactam 4.5 GM in Sodium Chloride 0.9% 100 ML IV SCH (15:01)
--- NOTE | 2017-10-23 18:09 | PCM.SN ---
- Free Text/Narrative Note: Patient seen with family at bedside. Updated family with her permission. Informed them about her diagnosis, clinical status and treatment plan. She has not already been seen and evaluated by Dr. Beckett sometime late this afternoon. The plan a this point is medical management.
[2017-10-24] MEDS: Sodium Chloride 0.9% 1,000 ML IV SCH (01:21)
[2017-10-24] MEDS: Piperacillin/Tazobactam 4.5 GM in Sodium Chloride 0.9% 100 ML IV SCH ×2 (01:23→13:58)
[2017-10-24] MEDS: Insulin Lispro 100 Unit/ML 3 ML KwikPen SUBCUT SCH ×4 (06:29→21:39)
--- NOTE | 2017-10-24 06:40 | PCM.PN ---
- General Info Date of Service: 10/24/17 Admission Dx/Problem (Free Text): Admission Diagnosis/Problem Admission Diagnosis/Problem Cellulitis Subjective Update: In to see Sydnee. We discussed what Dr. Beckett had said and her need for long- term antibiotics. She was upset with me as we decreased her tramadol frequency due to kidney function and she had some pretty substantial leg pain last night. Her creatinine is down to 1.6 today although she did receive IV fluid since admission. 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 She discussed risk vs. benefit of PICC and decision was made to follow lab values tomorrow and make a game plan. Regardless she will likely need long-term IV antibiotics for some time. Awaiting culture sensitivities. Dr. Beckett ordered PT wound care. Will continue current treatment. Updated patient on plan and answered questions. No concerns from nursing. Functional Status: Reports: Pain Controlled, Tolerating Diet, Ambulating, Urinating. Denies: New Symptoms - Review of Systems General: Reports: Appetite (improving ). Denies: Fever, Weakness, Fatigue, Malaise, Chills HEENT: Reports: No Symptoms. Denies: Sore Throat Pulmonary: Reports: No Symptoms. Denies: Shortness of Breath, Cough, Sputum, Wheezing Cardiovascular: Reports: No Symptoms. Denies: Chest Pain Gastrointestinal: Reports: No Symptoms. Denies: Abdominal Pain, Constipation, Diarrhea, Nausea, Vomiting Genitourinary: Reports: No Symptoms Musculoskeletal: Reports: Leg Pain (Worse overnight due to RLS. Improved to resolved today. ) Skin: Reports: No Symptoms Neurological: Reports: No Symptoms. Denies: Confusion Psychiatric: Reports: No Symptoms - Patient Data Vitals - Most Recent: Last Vital Signs Temp 99.1 F 10/24/17 04:42 Pulse 68 10/24/17 04:42 Resp 20 10/24/17 04:42 BP 107/75 10/24/17 04:42 Pulse Ox 95 10/24/17 04:42 Weight - Most Recent: 171 lb 2 oz I&O - Last 24 Hours: Intake & Output 10/23/17 10/23/17 10/24/17 14:59 22:59 06:59 Intake Total [phone] Output Total 1500 1700 Balance 120 -834 408 Lab Results Last 24 Hours: Laboratory Results - last 24 hr 10/23/17 10/23/17 10/23/17 Range/Units 05:16 05:16 11:13 Sodium 134 L (136-145) mEq/L Potassium 3.6 (3.5-5.1) mEq/L Chloride 98 (98-107) mEq/L Carbon Dioxide 28 (21-32) mEq/L Anion Gap 11.6 (5-15) BUN 42 H (7-18) mg/dL Creatinine 2.0 H (0.55-1.02) mg/dL Est Cr Clr Drug Dosing 16.92 mL/min Estimated GFR (MDRD) 24 (>60) mL/min BUN/Creatinine Ratio 21.0 H (14-18) Glucose 207 H (83-115) mg/dL POC Glucose 284 H (83-110) mg/dL Hemoglobin A1c 7.70 H (4.50-6.20) % Calcium 8.6 (8.5-10.1) mg/dL Magnesium 2.2 (1.8-2.4) mg/dl C-Reactive Protein 20.5 H* (<1.0) mg/dL 10/23/17 10/23/17 Range/Units 16:43 21:07 Sodium (136-145) mEq/L Potassium (3.5-5.1) mEq/L Chloride (98-107) mEq/L Carbon Dioxide (21-32) mEq/L Anion Gap (5-15) BUN (7-18) mg/dL Creatinine (0.55-1.02) mg/dL Est Cr Clr Drug Dosing mL/min Estimated GFR (MDRD) (>60) mL/min BUN/Creatinine Ratio (14-18) Glucose (83-115) mg/dL POC Glucose 207 H 283 H (83-110) mg/dL Hemoglobin A1c (4.50-6.20) % Calcium (8.5-10.1) mg/dL Magnesium (1.8-2.4) mg/dl C-Reactive Protein (<1.0) mg/dL Glenn Results Last 24 Hours: Microbiology 10/22/17 21:30 Aerobic Blood Culture - Preliminary Blood - Venous - Lab Draw NO GROWTH AFTER 1 DAY Anaerobic Blood Culture - Preliminary NO GROWTH AFTER 1 DAY 10/22/17 21:21 Aerobic Blood Culture - Preliminary Blood - Venous NO GROWTH AFTER 1 DAY Anaerobic Blood Culture - Preliminary Gram Positive Cocci 10/22/17 20:52 Gram Stain - Final Foot, Left Anaerobic Culture - Preliminary Staphylococcus Aureus Med Orders - Current: Current Medications Acetaminophen (Tylenol) 650 mg PO Q4H PRN PRN Reason: Pain (Mild 1-3)/fever Hydrocodone Bitart/Acetaminophen ([place] 325-5 Mg) 1 tab PO Q4H PRN PRN Reason: Pain (moderate 4-6) Last Admin: 10/23/17 21:37 Dose: 1 tab Allopurinol (Zyloprim) 100 mg PO DAILY [facility] Last Admin: 10/23/17 09:26 Dose: 100 mg Aspirin (Halfprin) 81 mg PO DAILY [facility] Last Admin: 10/23/17 09:26 Dose: 81 mg Clopidogrel Bisulfate (Plavix) 75 mg PO DAILY [facility] Last Admin: 10/23/17 09:25 Dose: 75 mg Fenofibrate (Tricor) 145 mg PO DAILY [facility] Last Admin: 10/23/17 09:24 Dose: 145 mg Furosemide (Lasix) 60 mg PO DAILY [facility] Last Admin: 10/23/17 09:25 Dose: 60 mg Heparin Sodium (Porcine) (Heparin Sodium) 5,000 units SUBCUT Q8H [facility] Hydralazine HCl (Apresoline) 20 mg IVPUSH Q4H PRN PRN Reason: Hypertension Piperacillin Sod/Tazobactam (Sod 4.5 gm/ Sodium Chloride) 100 mls @ 25 mls/hr IV Q12H [facility] Last Admin: 10/24/17 01:23 Dose: 25 mls/hr Sodium Chloride (Normal Saline) 1,000 mls @ 75 mls/hr IV ASDIRECTED [facility] Stop: 10/24/17 11:00 Last Admin: 10/24/17 01:21 Dose: 75 mls/hr Vancomycin HCl 1 gm/ Sodium (Chloride) 250 mls @ 250 mls/hr IV Q24H [facility] Last Admin: 10/23/17 22:36 Dose: 250 mls/hr Insulin Glargine (Lantus Solostar) 10 units SUBCUT 1700 [facility] Last Admin: 10/23/17 17:24 Dose: 10 units Insulin Glargine (Lantus Solostar) 50 units SUBCUT 1100 [facility] Last Admin: 10/23/17 12:01 Dose: 50 units Insulin Human Lispro (Humalog) 0 unit SUBCUT QIDACANDBED [facility]; Protocol Last Admin: 10/24/17 06:29 Dose: Not Given Isosorbide Mononitrate (Imdur) 60 mg PO DAILY [facility] Last Admin: 10/23/17 09:26 Dose: 60 mg Levothyroxine Sodium (Levothroid) 137 mcg PO ACBREAKFAST [facility] Last Admin: 10/24/17 06:27 Dose: 137 mcg Lorazepam (Ativan) 0.5 mg IVPUSH Q6H PRN PRN Reason: Anxiety Magnesium Sulfate (Pharmacy To Dose - Magnesium Replacement) 1 dose .XX ASDIRECTED [facility] Metoprolol Tartrate (Lopressor) 5 mg IVPUSH Q4H PRN PRN Reason: Tachycardia Metoprolol Tartrate (Lopressor) 25 mg PO BID [facility] Last Admin: 10/23/17 21:25 Dose: 25 mg Ondansetron HCl (Zofran Odt) 4 mg PO Q6H PRN PRN Reason: nausea, able to take PO Ondansetron HCl (Zofran) 4 mg IV Q6H PRN PRN Reason: Nausea/Vomiting Potassium Chloride (Pharmacy To Dose - Potassium Replacement) 1 dose .XX ASDIRECTED [facility] Rosuvastatin Calcium (Crestor) 5 mg PO DAILY [facility] Last Admin: 10/23/17 09:26 Dose: 5 mg Saccharomyces Boulardii (Florastor) 250 mg PO DAILY [facility] Last Admin: 10/23/17 09:25 Dose: 250 mg Sodium Chloride (Saline Flush) 10 ml FLUSH ASDIRECTED PRN PRN Reason: Keep Vein Open Last Admin: 10/22/17 21:08 Dose: 10 ml Tramadol HCl (Ultram) 100 mg PO Q12H PRN PRN Reason: pain Last Admin: 10/23/17 14:59 Dose: 100 mg Vancomycin HCl (Pharmacy To Dose - Vancomycin) 0 dose .XX ASDIRECTED PRN PRN Reason: RX TO DOSE VANCO Discontinued Medications Enoxaparin Sodium (Lovenox) 30 mg SUBCUT DAILY [facility] Last Admin: 10/23/17 08:17 Dose: 30 mg Sodium Chloride (Normal Saline) 1,000 mls @ 999 mls/hr IV ONETIME ONE Stop: 10/22/17 22:54 Last Admin: 10/22/17 23:44 Dose: 999 mls/hr Vancomycin HCl 1.75 gm/ Sodium (Chloride) 500 mls @ 250 mls/hr IV ONETIME ONE Stop: 10/23/17 00:29 Last Admin: 10/23/17 01:34 Dose: Not Given Vancomycin HCl 1 gm/ Sodium (Chloride) 250 mls @ 250 mls/hr IV ONETIME ONE Stop: 10/23/17 00:10 Last Admin: 10/22/17 23:44 Dose: 250 mls/hr Piperacillin Sod/Tazobactam (Sod 2.25 gm/ Sodium Chloride) 100 mls @ 200 mls/ hr IV ONETIME ONE Stop: 10/22/17 23:50 Last Admin: 10/23/17 01:31 Dose: 200 mls/hr Piperacillin Sod/Tazobactam (Sod 4.5 gm/ Sodium Chloride) 100 mls @ 25 mls/hr IV Q8H [facility] Iopamidol (Isovue-370 (76%)) 100 ml IVPUSH ONETIME ONE Stop: 10/22/17 21:11 Last Admin: 10/22/17 23:07 Dose: 100 ml Linagliptin [ (Tradjenta] 5 Mg) 0 each PO DAILY [facility] Last Admin: 10/23/17 09:29 Dose: Not Given - Exam Quality Assessment: DVT Prophylaxis General: Alert, Oriented, Cooperative, No Acute Distress HEENT: Pupils Equal, Pupils Reactive, EOMI, Mucous Membr. Moist/[place] Neck: Supple, Trachea Midline, No JVD Lungs: Clear to Auscultation, Normal Respiratory Effort Cardiovascular: Regular Rate, Regular Rhythm GI/Abdominal Exam: Normal Bowel Sounds, Soft, Non-Tender, No Distention (Female) Exam: Deferred Back Exam: Normal Inspection, Full Range of Motion Extremities: Normal Range of Motion, No Pedal Edema, Normal Capillary Refill, Increased Warmth (improving ), Redness (improving ), Other (wound on medial aspect of right foot near 1st MTP joint. ) Peripheral Pulses: 0: Dorsalis Pedis (L), Dorsalis Pedis (R), 2+: Radial (L), Radial (R) Skin: Warm, Dry, Intact Wound/Incisions: Healing Well, Drainage, Erythema Improving Neurological: No New Focal Deficit Psy/Mental Status: Alert, Normal Affect, Normal Mood - Problem List & Annotations (1) Osteomyelitis SNOMED Code(s): 97365156 Code(s): M86.9 - OSTEOMYELITIS, UNSPECIFIED Status: Suspected Priority: High Current Visit: Yes Qualifiers: Osteomyelitis type: unspecified type Osteomyelitis location: foot Laterality: right Qualified Code(s): M86.9 - Osteomyelitis, unspecified (2) Cellulitis SNOMED Code(s): 536248389 Code(s): L03.90 - CELLULITIS, UNSPECIFIED Status: Acute Priority: High Current Visit: Yes Qualifiers: Site of cellulitis of extremity: lower extremity Laterality: right (3) HTN (hypertension) SNOMED Code(s): 42459703 Code(s): I10 - ESSENTIAL (PRIMARY) HYPERTENSION Status: Chronic Priority : Medium Current Visit: No Qualifiers: Hypertension type: unspecified Qualified Code(s): I10 - Essential (primary ) hypertension (4) CAD (coronary artery disease) SNOMED Code(s): 07947892 Code(s): I25.10 - ATHSCL HEART DISEASE OF [place] CORONARY ARTERY W/O ANG PCTRS Status: Chronic Priority: Medium Current Visit: No Qualifiers: Coronary Disease-Associated Artery/Lesion type: unspecified vessel or lesion type [place] vs. transplanted heart: unspecified whether [place] or transplanted heart Associated angina: angina presence unspecified Qualified Code(s): I25.10 - Atherosclerotic heart disease of [place] coronary artery without angina pectoris (5) Arthritis SNOMED Code(s): 5832241 Code(s): M19.90 - UNSPECIFIED OSTEOARTHRITIS, UNSPECIFIED SITE Status: Chronic Priority: Low Current Visit: No (6) Hypothyroidism SNOMED Code(s): 67261233 Code(s): E03.9 - HYPOTHYROIDISM, UNSPECIFIED Status: Chronic Priority: Low Current Visit: No Qualifiers: Hypothyroidism type: unspecified Qualified Code(s): E03.9 - Hypothyroidism , unspecified (7) Diabetes SNOMED Code(s): 73100975 Code(s): E11.9 - TYPE 2 DIABETES MELLITUS WITHOUT COMPLICATIONS Status: Chronic Priority: Medium Current Visit: Yes Qualifiers: Diabetes mellitus type: type 2 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 insulin use: with penitentiary use Diabetes mellitus complication status: with neurologic complications Diabetes mellitus complication detail: with unspecified neuropathy Qualified Code(s): E11.40 - Type 2 diabetes mellitus with diabetic neuropathy, unspecified; Z79.4 - retirement (current) use of insulin (8) Peripheral neuropathy SNOMED Code(s): 461833190 Code(s): G62.9 - POLYNEUROPATHY, UNSPECIFIED Status: Chronic Priority: High Current Visit: Yes Qualifiers: Peripheral neuropathy type: polyneuropathy, unspecified Qualified Code(s): G62.9 - Polyneuropathy, unspecified (9) CKD (chronic kidney disease) stage 4, GFR 15-29 ml/min SNOMED Code(s): 516323831 Code(s): N18.4 - CHRONIC KIDNEY DISEASE, STAGE 4 (SEVERE) Status: Acute Priority: High Current Visit: Yes (10) Hyponatremia SNOMED Code(s): 92893931 Code(s): E87.1 - HYPO-OSMOLALITY AND HYPONATREMIA Status: Resolved Priority: Medium Current Visit: Yes (11) Hypokalemia SNOMED Code(s): 86122133 Code(s): E87.6 - HYPOKALEMIA Status: Acute Priority: High Current Visit : Yes - Problem List Review Problem List Initiated/Reviewed/Updated: Yes - My Orders Last 24 Hours: My Active Orders 10/23/17 08:32 Consult to Physician [CONS] Routine Foot wo Cont Rt [MR] Routine 10/23/17 08:33 Notify Provider Consults [RC] ASDIRECTED 10/23/17 08:37 Cardiac Monitoring [RC] CONTINUOUS Height and Weight [RC] 04 Intake and Output [RC] 04,16 Oxygen Therapy [RC] PRN Pulse Oximetry [RC] PRN Up to Chair [RC] ASDIRECTED VTE/DVT Education [RC] PER UNIT ROUTINE Vital Signs [RC] Q4HR Consult to Case Management/Link Assembler [CONS] Routine OT Evaluation and Treatment [CONS] Routine PT Evaluation and Treatment [CONS] Routine Acetaminophen [Tylenol] 650 mg PO Q4H PRN Acetaminophen/HYDROcodone [[place] 325-5 MG] 1 tab PO Q4H PRN Ondansetron [Zofran ODT] 4 mg PO Q6H PRN Ondansetron [Zofran] 4 mg IV Q6H PRN 10/23/17 08:40 Metoprolol Tartrate [Lopressor] 5 mg IVPUSH Q4H PRN hydrALAZINE [Apresoline] 20 mg IVPUSH Q4H PRN 10/23/17 08:45 Magnesium Rep Pharmacy to Dose [Pharmacy to Dose - Magnesium Replacement] 1 dose .XX ASDIRECTED Potassium Rep Pharmacy to Dose [Pharmacy to Dose - Potassium Replacement] 1 dose .XX ASDIRECTED Sodium Chloride 0.9% [Normal Saline] 1,000 ml IV ASDIRECTED 10/23/17 09:00 Allopurinol [Zyloprim] 100 mg PO DAILY Aspirin [Halfprin] 81 mg PO DAILY Clopidogrel [Plavix] 75 mg PO DAILY Fenofibrate Nanocrystallized [Tricor] 145 mg PO DAILY Furosemide [Lasix] 60 mg PO DAILY Isosorbide Mononitrate [Imdur] 60 mg PO DAILY Metoprolol Tartrate [Lopressor] 25 mg PO BID Rosuvastatin [Crestor] 5 mg PO DAILY Saccharomyces Boulardii [Florastor] 250 mg PO DAILY 10/23/17 09:35 Consult to Spiritual Care [CONS] Routine 10/23/17 11:00 Insulin Glarg,Human.Rec.Analog [LantUS Solostar] 50 units SUBCUT 1100 10/23/17 11:01 Isolation [COMM] Routine 10/23/17 11:22 Wound Care [RC] DAILY 10/23/17 13:10 Consult to Diabetic Nurse Specialist [CONS] Routine Consult to Traffic Assistant [CONS] Routine 10/23/17 13:32 May Shower [RC] ASDIRECTED 10/23/17 13:42 LORazepam [Ativan] 0.5 mg IVPUSH Q6H PRN 10/23/17 15:00 traMADol [Ultram] 100 mg PO Q12H PRN 10/23/17 17:00 Insulin Glarg,Human.Rec.Analog [LantUS Solostar] 10 units SUBCUT 1700 10/24/17 06:00 Levothyroxine [Levothroid] 137 mcg PO ACBREAKFAST 10/24/17 06:15 BASIC METABOLIC PANEL,BMP [CHEM] AM CBC WITH AUTO DIFF [HEME] AM CRP [C-REACTIVE PROTEIN] [CHEM] AM MAGNESIUM [CHEM] AM PRO B-TYPE NATRIUR PEPT,BNPPRO [CHEM] Routine 10/25/17 05:11 BASIC METABOLIC PANEL,BMP [CHEM] AM CBC WITH AUTO DIFF [HEME] AM CRP [C-REACTIVE PROTEIN] [CHEM] AM MAGNESIUM [CHEM] AM 10/26/17 05:11 BASIC METABOLIC PANEL,BMP [CHEM] AM CBC WITH AUTO DIFF [HEME] AM CRP [C-REACTIVE PROTEIN] [CHEM] AM MAGNESIUM [CHEM] AM 10/27/17 05:11 BASIC METABOLIC PANEL,BMP [CHEM] AM CBC WITH AUTO DIFF [HEME] AM CRP [C-REACTIVE PROTEIN] [CHEM] AM MAGNESIUM [CHEM] AM - Plan Plan:: I/P: Cellulitis of right foot with osteomyelitis, improving -Reports she has had ulcers on right ventral and medial right foot prior -Has been seeing Dr. Brown (podiatry) for this - he prescribed a salve -Has been seeing PT for woundcare -Denies fever or any other infectious symptoms, however has had decreased appetite -Approximately 2cm wound with purulent drainage. -Risk factors: Diabetic, history of CAD, peripheral neuropathy with no sensation to either leg -Blood sugars have been in the 200's; A1C 7.7 -No leukocytosis, CRP 28.2-->20.5-->15.1 -Lactic acid WNL -Blood cultures obtained - Gram positive cocci so far -Wound cultures - Staph aureus so far -Vancomycin and zosyn started in ED - continue -CT Scan on 10/22/17: 1. Soft tissue swelling compatible with cellulitis. Ulcers noted within the medial foot at the level of first metatarsal. 2. Erosions within the distal first metatarsal head as well as the basal proximal found except of the first toe. These erosions are compatible with osteomyelitis. 3. Osteopenia and degenerative change. -MRI ordered for 10/23/17: 1. Diffuse soft tissue edema compatible with cellulitis. Soft tissue erosion as noted above. 2. Edema within the shaft and distal head of the first metatarsal as well throughout a large portion of the proximal phalanx of the first toe. Cortical erosions are seen within both these digits and findings are compatible with osteomyelitis. 3. No other areas of bone marrow edema are seen. -Probiotic -Wound care daily as directed -PT/nursing -PT/OT -Dr. Beckett (orthopedics) consulted and recommendin. No surgical intervention/debridement warranted at this time. 2. Close monitoring in hospital and follow-up weekly with him at discharge 3. Continue IV antibiotics 4. Place PICC line for long-term IV antibiotics (6 weeks) 5. May need infectious disease consult for poly-microbial Bacteremia -2/2 above -Positive for gram positive cocci in 2 bottles -Repeat culture tonight at 2130 -Continue IV antibiotics as above CKD stage 4, improving -Baseline appears to be around 2.0 for creatinine with GFR in middle 20's -BUN 47-->42-->33 -Creatinine 2.2-->2.0-->1.6 -eGFR 22-->24-->31 -Will switch from lovenox to heparin -Hold ACEI -Home PO lasix for now -IV fluids as ordered -Consider nephrology consult upon discharge Hypokalemia -Potassium 3.3 -Pharmacy to monitor and supplement Resolved: Hyponatremia, mild -Sodium 133-->134-->138 -IV fluids as ordered -Monitor Chronic: CAD HTN Arthritis Type II DM Hypothyroidism Plan: Admit to medical floor Other orders as indicated above SS insulin in addition to home long acting insulin Home medications as ordered Routine AM labs Contact precautions Obtain old records 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 yT
--- NOTE | 2017-10-24 06:53 | PCM.CONS ---
H&P History of Present Illness - General Date of Service: 10/23/17 Admit Problem/Dx: Admission Diagnosis/Problem Admission Diagnosis/Problem Cellulitis Source of Information: Patient, Provider - History of Present Illness Initial Comments - Free Text/Narative: This is a 77 year old female who comes in with right foot issues. She states that she got a sore on her foot over the last few weeks and it was small to begin with . Subsequently at has increased in size over the top of the 1st MTP and the redness and swelling has increased. The patient did see Dr. Brown and was given a PT prescription as well as told to put salve on it. She denies constitutional symptoms at this time. She does have severe diabetic neuropathy. She has been admitted by the medical team and an MRI of the foot was completed and she has been placed on IV antibiotics. - Related Data Allergies/Adverse Reactions: Allergies Allergy/AdvReac Type Severity Reaction Status Date / Time No Known Allergies Allergy Verified 10/22/17 17:59 Home Medications: Home Meds Furosemide [Lasix] 60 mg PO DAILY 11/16/13 [History] Insulin Lispro Prot/Lispro [HumaLOG Mix 75-25] 0 unit SQ DAILY PRN 11/16/13 [ History] Isosorbide Mononitrate [Imdur] 60 mg PO DAILY 11/16/13 [History] Levothyroxine [Levothroid] 137 mcg PO DAILY 11/16/13 [History] Metoprolol Tartrate 25 mg PO BID 11/16/13 [History] Rosuvastatin [Crestor] 5 mg PO DAILY 11/16/13 [History] Allopurinol [Zyloprim] 100 mg PO DAILY 07/28/14 [History] Aspirin [Halfprin] 81 mg PO DAILY 07/28/14 [History] Biotin 10,000 mcg PO DAILY 07/28/14 [History] Ca Carb & Gluc/Mag Ox & Gluc [Calcium Magnesium Caplet] 1 tab PO TID 07/28/14 [ History] Cholecalciferol (Vitamin D3) [D3-2000] 1,000 unit PO DAILY 07/28/14 [History] Linagliptin [Tradjenta] 5 mg PO DAILY 07/28/14 [History] Fenofibrate Nanocrystallized [Tricor] 145 mg PO DAILY 10/22/17 [History] Insulin Aspart [NovoLOG] 0 unit SQ WITHMEALSANDBED 10/22/17 [History] Ramipril [Altace] 5 mg PO BEDTIME 10/22/17 [History] Clopidogrel [Plavix] 75 mg PO DAILY 10/23/17 [History] Insulin Glarg,Human.Rec.Analog [Lantus] 0 unit SUBCUT DAILY 10/23/17 [History] Insulin Glarg,Human.Rec.Analog [Lantus] 10 unit SUBCUT 1700 10/23/17 [History] Insulin Glarg,Human.Rec.Analog [Lantus] 50 unit SUBCUT 1100 10/23/17 [History] traMADol [Ultram] 100 mg PO TID PRN 10/23/17 [History] Past Medical History HEENT History: Reports: Impaired Vision Cardiovascular History: Reports: Hypertension Other Cardiovascular History: PTCA with stent Gastrointestinal History: Reports: None Genitourinary History: Reports: None Other Genitourinary History: "poor kidney function" 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 report 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: Musculoskeletal History: Reports: Arthritis Neurological History: Reports: Neuropathy, Diabetic Endocrine/Metabolic History: Reports: Diabetes, Type II, Hypothyroidism Other Endocrine/Metabolic History: Hypothyroidism Immunologic History: Reports: None Dermatologic History: Reports: Other (See Below) Other Dermatologic History: diabetic ulcer - Infectious Disease History Infectious Disease History: Reports: None - Past Surgical History HEENT Surgical History: Reports: Cataract Surgery Female Surgical History: Reports: Hysterectomy Musculoskeletal Surgical History: Reports: Carpal Tunnel Other Musculoskeletal Surgeries/Procedures:: Bilateral hand carpal tunnel surgery Social & Family History - Family History Family Medical History: Noncontributory - Tobacco Use Smoking Status *Q: Former Smoker Years of Tobacco use: 17 Packs/Tins Daily: 1 Used Tobacco, but Quit: Yes Month/Year Tobacco Last Used: 1997 Second Hand Smoke Exposure: No - Caffeine Use Caffeine Use: Reports: Coffee Other Caffeine Use: daily - Recreational Drug Use Recreational Drug Use: No H&P Review of Systems - Review of Systems: Review Of Systems: ROS reveals no pertinent complaints other than HPI. Exam - Exam Exam: See Below - Vital Signs Vital Signs: Last Vital Signs Temp 37.3 C 10/24/17 04:42 Pulse 68 10/24/17 04:42 Resp 20 10/24/17 04:42 BP 107/75 10/24/17 04:42 Pulse Ox 95 10/24/17 04:42 Weight: 77.621 kg - Exam Physical Exam Comments:: right foot: there is a 8bmd2rd grade 2 ulceration over the dorsum of her first MTP, there is no exposed bone or tendon, there is erythema noted throughout this region and extending into the big toe, there is no fluctuance, she is able to move her big toe without pain, there is a minor amount of skin breakdown noted between her second and big toe but nothing full thickness, she has stocking decreased sensation distally but good capillary refill at 2+ - Patient Data Lab Results Last 24 hrs: Laboratory Results - last 24 hr 10/23/17 10/23/17 10/23/17 Range/Units 05:16 05:16 11:13 WBC (3.98-10.04) K/mm3 RBC (3.98-5.22) M/mm3 Hgb (11.2-15.7) gm/L Hct (34.1-44.9) % MCV (79.4-94.8) fl MCH (25.6-32.2) pg MCHC (32.2-35.5) g/dl RDW Std Deviation (36.4-46.3) fL Plt Count (182-369) K/mm3 MPV (9.4-12.3) fl Neut % (Auto) (34.0-71.1) % Lymph % (Auto) (19.3-51.7) % Brooks % (Auto) (4.7-12.5) % Eos % (Auto) (0.7-5.8) Baso % (Auto) (0.1-1.2) % Neut # (Auto) (1.56-6.13) K/mm3 Lymph # (Auto) (1.18-3.74) K/mm3 Brooks # (Auto) (0.24-0.36) K/mm3 Eos # (Auto) (0.04-0.36) K/mm3 Baso # (Auto) (0.01-0.08) K/mm3 Sodium 134 L (136-145) mEq/L Potassium 3.6 (3.5-5.1) mEq/L Chloride 98 (98-107) mEq/L Carbon Dioxide 28 (21-32) mEq/L Anion Gap 11.6 (5-15) BUN 42 H (7-18) mg/dL Creatinine 2.0 H (0.55-1.02) mg/dL Est Cr Clr Drug Dosing 16.92 mL/min Estimated GFR (MDRD) 24 (>60) mL/min BUN/Creatinine Ratio 21.0 H (14-18) Glucose 207 H (83-115) mg/dL POC Glucose 284 H (83-110) mg/dL Hemoglobin A1c 7.70 H (4.50-6.20) % Calcium 8.6 (8.5-10.1) mg/dL Magnesium 2.2 (1.8-2.4) mg/dl C-Reactive Protein 20.5 H* (<1.0) mg/dL 10/23/17 10/23/17 10/24/17 Range/Units 16:43 21:07 06:15 WBC 8.46 (3.98-10.04) K/mm3 RBC 3.54 L (3.98-5.22) M/mm3 Hgb 10.3 L (11.2-15.7) gm/L Hct 31.2 L (34.1-44.9) % MCV 88.1 (79.4-94.8) fl MCH 29.1 (25.6-32.2) pg MCHC 33.0 (32.2-35.5) g/dl RDW Std Deviation 41.6 (36.4-46.3) fL Plt Count 314 (182-369) K/mm3 MPV 9.0 L (9.4-12.3) fl Neut % (Auto) 75.1 H (34.0-71.1) % Lymph % (Auto) 11.2 L (19.3-51.7) % Brooks % (Auto) 11.2 (4.7-12.5) % Eos % (Auto) 1.9 (0.7-5.8) Baso % (Auto) 0.2 (0.1-1.2) % Neut # (Auto) 6.35 H (1.56-6.13) K/mm3 Lymph # (Auto) 0.95 L (1.18-3.74) K/mm3 Brooks # (Auto) 0.95 H (0.24-0.36) K/mm3 Eos # (Auto) 0.16 (0.04-0.36) K/mm3 Baso # (Auto) 0.02 (0.01-0.08) K/mm3 Sodium (136-145) mEq/L Potassium (3.5-5.1) mEq/L Chloride (98-107) mEq/L Carbon Dioxide (21-32) mEq/L Anion Gap (5-15) BUN (7-18) mg/dL Creatinine (0.55-1.02) mg/dL Est Cr Clr Drug Dosing mL/min Estimated GFR (MDRD) (>60) mL/min BUN/Creatinine Ratio (14-18) Glucose (83-115) mg/dL POC Glucose 207 H 283 H (83-110) mg/dL Hemoglobin A1c (4.50-6.20) % Calcium (8.5-10.1) mg/dL Magnesium (1.8-2.4) mg/dl C-Reactive Protein (<1.0) mg/dL Result Diagrams: 10/24/17 06:15 10/23/17 05:16 Glenn Results Last 24 hrs: Microbiology 10/22/17 21:30 Aerobic Blood Culture - Preliminary Blood - Venous - Lab Draw NO GROWTH AFTER 1 DAY Anaerobic Blood Culture - Preliminary NO GROWTH AFTER 1 DAY 10/22/17 21:21 Aerobic Blood Culture - Preliminary Blood - Venous NO GROWTH AFTER 1 DAY Anaerobic Blood Culture - Preliminary Gram Positive Cocci 10/22/17 20:52 Gram Stain - Final Foot, Left Anaerobic Culture - Preliminary Staphylococcus Aureus Consult PN Assessment/Plan Procedures: Procedures CATARACT SURG W/IOL 1 STAGE (09/03/14) COMP SCREEN MAMMOGRAM ADD-ON (06/23/13) COMPLETE CBC W/AUTO DIFF WBC (11/16/13) CONTROL OF NOSEBLEED (11/16/13) CT LOWER EXTREMITY W/O DYE (04/24/15) DXA BONE DENSITY AXIAL (05/17/15) EMERGENCY DEPT VISIT (04/24/15) MR-STAPH DNA AMP PROBE (08/29/16) MRI JNT OF LWR EXTRE W/O DYE (05/05/15) PROTHROMBIN TIME (11/16/13) ROUTINE VENIPUNCTURE (11/16/13) URINE BACTERIA CULTURE (04/06/14) URINE CULTURE/COLONY COUNT (04/08/15) Problem List Initiated/Reviewed/Updated: Yes My Orders Last 24 Hours: My Active Orders 10/23/17 18:10 Consult to Physical Therapy [PT Evaluation and Treatment] [CONS] Routine Plan: A: 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 Per the patient it looks much better today after being started on IV antibiotics. At this time I would have a PICC line placed and have the patient see wound therapy. The ulceration is only partial thickness so does not need OR debridement at this time. I will want to see the patient weekly in clinic to make sure it does not progress to amputation which I did behavioral health counselor the patient on today if it worsens. Patient will require at least 6 weeks of IV antibiotics and a Infectious Disease consult may be warranted as all foot diabetic infections should be treated for poly-microbial.
--- NOTE | 2017-10-24 07:26 | MR ---
MRI right foot Technique: T1 and fat-suppressed inversion recovery sagittal; T1 and T2 fat- suppressed axial; proton, T2 and T2 fat-suppressed coronal images were obtained. Comparison: Prior CT right foot exam of 10/22/17. Findings: Edema is identified within the shaft and distal head of the first metatarsal. Edema is identified throughout a large portion of the proximal phalanx of the first digit. No other areas of bone marrow edema are seen. Cortical erosions are seen within the distal first metatarsal head and base of the proximal phalanx. Diffuse soft tissue swelling is identified with soft tissue erosion seen at the level of the first metatarsal head. Impression: 1. Diffuse soft tissue edema compatible with cellulitis. Soft tissue erosion as noted above. 2. Edema within the shaft and distal head of the first metatarsal as well as throughout a large portion of the proximal phalanx of the first toe. Cortical erosions are seen within both these digits and findings are compatible with osteomyelitis. 3. No other areas of bone marrow edema are seen. Diagnostic code #5 Home Health Care Worker called report to Lino Montesinos at 13:44 on 10/23/2017 [facility]
[2017-10-24] MEDS ORDERED: Potassium Chloride 20 MEQ Tab.ER PO ONE (09:00)
[2017-10-24] MEDS: Allopurinol 100 MG Tab PO SCH (09:45)
[2017-10-24] MEDS: Aspirin 81 MG Tab.EC PO SCH (09:46)
[2017-10-24] MEDS: Clopidogrel 75 MG Tab PO SCH (09:46)
[2017-10-24] MEDS: Isosorbide Mononitrate 60 MG Tab.ER PO SCH (09:46)
[2017-10-24] MEDS: Fenofibrate Nanocrystallized 145 MG Tab PO SCH (09:46)
[2017-10-24] MEDS: Saccharomyces Boulardii (Probiotic) 250 MG Cap PO SCH (09:46)
[2017-10-24] MEDS: Metoprolol Tartrate 25 MG Tab PO SCH ×2 (09:46→21:38)
[2017-10-24] MEDS: Furosemide 40 MG Tab PO SCH (09:46)
[2017-10-24] MEDS: Rosuvastatin 10 MG Tab PO SCH (09:47)
[2017-10-24] MEDS: Heparin Sodium 5,000 Units/ML Vial SUBCUT SCH ×2 (09:50→16:54)
[2017-10-24] MEDS ORDERED: traMADol 50 MG Tab PO PRN (10:00)
[2017-10-24] MEDS: Insulin Glargine,Human Rec. Analog 100 Units/ML 3 ML Pen SUBCUT SCH ×2 (11:49→17:29)
--- NOTE | 2017-10-24 15:27 | PCM.SN ---
- Free Text/Narrative Note: 10/24/2017 1530 Chart reviewed after I was called for PICC line placement. Noted chronic kidney disease stage 4. Visited with patient. She prefers we wait until tomorrow to see if labs show improvement in kidney function. Already improved since admission. Recommendation is to place a tunneled picc in chest with ckd. Consulted with Dr. Diez, dedicated driver in [place], regarding patient diagnosis and all labs. He stated that it is fine to place PICC line in the arm , but to choose the dominant side. Information passed along to nurses, renal case manager, and MATERIAL ATTENDANT for placement tomorrow am. Letitia
[2017-10-24] MEDS: traMADol 50 MG Tab PO PRN (16:53)
[2017-10-25] MEDS: Heparin Sodium 5,000 Units/ML Vial SUBCUT SCH ×2 (00:17→08:25)
[2017-10-25] MEDS: Piperacillin/Tazobactam 4.5 GM in Sodium Chloride 0.9% 100 ML IV SCH ×2 (01:30→13:27)
[2017-10-25] MEDS: traMADol 50 MG Tab PO PRN (02:00)
[2017-10-25] MEDS: Insulin Lispro 100 Unit/ML 3 ML KwikPen SUBCUT SCH ×2 (06:55→11:44)
--- NOTE | 2017-10-25 07:03 | PCM.PN ---
- General Info Date of Service: 10/25/17 Admission Dx/Problem (Free Text): Admission Diagnosis/Problem Admission Diagnosis/Problem Cellulitis Subjective Update: In to see Sydnee. She is sitting up on the edge of the bed. We discussed her herbal medications and how they are likely worsening her kidney function. She agreed to stop them. Will start requip with hopes of improving this. Functional Status: Reports: Pain Controlled, Tolerating Diet, Ambulating, Urinating. Denies: New Symptoms - Review of Systems General: Reports: No Symptoms. Denies: Fever, Weakness, Fatigue, Malaise HEENT: Reports: No Symptoms. Denies: Sore Throat Pulmonary: Reports: No Symptoms. Denies: Shortness of Breath, Cough, Sputum Cardiovascular: Reports: No Symptoms. Denies: Chest Pain, Dyspnea on Exertion Gastrointestinal: Reports: Diarrhea. Denies: Abdominal Pain, Constipation, Decreased Appetite, Nausea, Vomiting Genitourinary: Reports: No Symptoms. Denies: Dysuria, Frequency, Burning, Pain Musculoskeletal: Reports: No Symptoms Skin: Reports: No Symptoms Neurological: Reports: No Symptoms. Denies: Confusion Psychiatric: Reports: No Symptoms - Patient Data Vitals - Most Recent: Last Vital Signs Temp 99.3 F 10/24/17 23:49 Pulse 61 10/24/17 23:49 Resp 20 10/24/17 23:49 BP 119/56 L 10/24/17 23:49 Pulse Ox 97 10/24/17 23:49 Weight - Most Recent: 169 lb 11.2 oz I&O - Last 24 Hours: Intake & Output 10/24/17 10/25/17 10/25/17 22:59 06:59 14:59 Intake Total 2755 1150 Output Total 1100 300 Balance 1655 850 Lab Results Last 24 Hours: Laboratory Results - last 24 hr 10/24/17 10/24/17 10/24/17 Range/Units 06:15 06:15 06:26 WBC (3.98-10.04) K/mm3 RBC (3.98-5.22) M/mm3 Hgb (11.2-15.7) gm/L Hct (34.1-44.9) % MCV (79.4-94.8) fl MCH (25.6-32.2) pg MCHC (32.2-35.5) g/dl RDW Std Deviation (36.4-46.3) fL Plt Count (182-369) K/mm3 MPV (9.4-12.3) fl Neut % (Auto) (34.0-71.1) % Lymph % (Auto) (19.3-51.7) % [place] % (Auto) (4.7-12.5) % Eos % (Auto) (0.7-5.8) Baso % (Auto) (0.1-1.2) % Neut # (Auto) (1.56-6.13) K/mm3 Lymph # (Auto) (1.18-3.74) K/mm3 [place] # (Auto) (0.24-0.36) K/mm3 Eos # (Auto) (0.04-0.36) K/mm3 Baso # (Auto) (0.01-0.08) K/mm3 Sodium 138 (136-145) mEq/L Potassium 3.3 L (3.5-5.1) mEq/L Chloride 103 (98-107) mEq/L Carbon Dioxide 28 (21-32) mEq/L Anion Gap 10.3 (5-15) BUN 33 H (7-18) mg/dL Creatinine 1.6 H (0.55-1.02) mg/dL Est Cr Clr Drug Dosing 21.15 mL/min Estimated GFR (MDRD) 31 (>60) mL/min BUN/Creatinine Ratio 20.6 H (14-18) Glucose 104 (83-115) mg/dL POC Glucose 102 (83-110) mg/dL Calcium 8.5 (8.5-10.1) mg/dL Magnesium 2.0 (1.8-2.4) mg/dl C-Reactive Protein 15.1 H* (<1.0) mg/dL NT-Pro-B Natriuret Pep 455 H (0-450) pg/mL Vancomycin Trough (10.0-20.0) 10/24/17 10/24/17 10/24/17 Range/Units 10:48 16:58 21:27 WBC (3.98-10.04) K/mm3 RBC (3.98-5.22) M/mm3 Hgb (11.2-15.7) gm/L Hct (34.1-44.9) % MCV (79.4-94.8) fl MCH (25.6-32.2) pg MCHC (32.2-35.5) g/dl RDW Std Deviation (36.4-46.3) fL Plt Count (182-369) K/mm3 MPV (9.4-12.3) fl Neut % (Auto) (34.0-71.1) % Lymph % (Auto) (19.3-51.7) % [place] % (Auto) (4.7-12.5) % Eos % (Auto) (0.7-5.8) Baso % (Auto) (0.1-1.2) % Neut # (Auto) (1.56-6.13) K/mm3 Lymph # (Auto) (1.18-3.74) K/mm3 [place] # (Auto) (0.24-0.36) K/mm3 Eos # (Auto) (0.04-0.36) K/mm3 Baso # (Auto) (0.01-0.08) K/mm3 Sodium (136-145) mEq/L Potassium (3.5-5.1) mEq/L Chloride (98-107) mEq/L Carbon Dioxide (21-32) mEq/L Anion Gap (5-15) BUN (7-18) mg/dL Creatinine (0.55-1.02) mg/dL Est Cr Clr Drug Dosing mL/min Estimated GFR (MDRD) (>60) mL/min BUN/Creatinine Ratio (14-18) Glucose (83-115) mg/dL POC Glucose 247 H 193 H 257 H (83-110) mg/dL Calcium (8.5-10.1) mg/dL Magnesium (1.8-2.4) mg/dl C-Reactive Protein (<1.0) mg/dL NT-Pro-B Natriuret Pep (0-450) pg/mL Vancomycin Trough (10.0-20.0) 10/24/17 10/25/17 10/25/17 Range/Units 23:00 06:18 06:20 WBC 11.35 H (3.98-10.04) K/mm3 RBC 3.45 L (3.98-5.22) M/mm3 Hgb 10.0 L (11.2-15.7) gm/L Hct 30.5 L (34.1-44.9) % MCV 88.4 (79.4-94.8) fl MCH 29.0 (25.6-32.2) pg MCHC 32.8 (32.2-35.5) g/dl RDW Std Deviation 41.7 (36.4-46.3) fL Plt Count 368 (182-369) K/mm3 MPV 8.9 L (9.4-12.3) fl Neut % (Auto) 74.8 H (34.0-71.1) % Lymph % (Auto) 12.2 L (19.3-51.7) % [place] % (Auto) 10.6 (4.7-12.5) % Eos % (Auto) 1.3 (0.7-5.8) Baso % (Auto) 0.4 (0.1-1.2) % Neut # (Auto) 8.50 H (1.56-6.13) K/mm3 Lymph # (Auto) 1.38 (1.18-3.74) K/mm3 [place] # (Auto) 1.20 H (0.24-0.36) K/mm3 Eos # (Auto) 0.15 (0.04-0.36) K/mm3 Baso # (Auto) 0.04 (0.01-0.08) K/mm3 Sodium (136-145) mEq/L Potassium (3.5-5.1) mEq/L Chloride (98-107) mEq/L Carbon Dioxide (21-32) mEq/L Anion Gap (5-15) BUN (7-18) mg/dL Creatinine (0.55-1.02) mg/dL Est Cr Clr Drug Dosing mL/min Estimated GFR (MDRD) (>60) mL/min BUN/Creatinine Ratio (14-18) Glucose (83-115) mg/dL POC Glucose 67 L (83-110) mg/dL Calcium (8.5-10.1) mg/dL Magnesium (1.8-2.4) mg/dl C-Reactive Protein (<1.0) mg/dL NT-Pro-B Natriuret Pep (0-450) pg/mL Vancomycin Trough 10.5 (10.0-20.0) 09/13/18 Range/Units 06:48 WBC (3.98-10.04) K/mm3 RBC (3.98-5.22) M/mm3 Hgb (11.2-15.7) gm/L Hct (34.1-44.9) % MCV (79.4-94.8) fl MCH (25.6-32.2) pg MCHC (32.2-35.5) g/dl RDW Std Deviation (36.4-46.3) fL Plt Count (182-369) K/mm3 MPV (9.4-12.3) fl Neut % (Auto) (34.0-71.1) % Lymph % (Auto) (19.3-51.7) % [place] % (Auto) (4.7-12.5) % Eos % (Auto) (0.7-5.8) Baso % (Auto) (0.1-1.2) % Neut # (Auto) (1.56-6.13) K/mm3 Lymph # (Auto) (1.18-3.74) K/mm3 [place] # (Auto) (0.24-0.36) K/mm3 Eos # (Auto) (0.04-0.36) K/mm3 Baso # (Auto) (0.01-0.08) K/mm3 Sodium (136-145) mEq/L Potassium (3.5-5.1) mEq/L Chloride (98-107) mEq/L Carbon Dioxide (21-32) mEq/L Anion Gap (5-15) BUN (7-18) mg/dL Creatinine (0.55-1.02) mg/dL Est Cr Clr Drug Dosing mL/min Estimated GFR (MDRD) (>60) mL/min BUN/Creatinine Ratio (14-18) Glucose (83-115) mg/dL POC Glucose 100 (83-110) mg/dL Calcium (8.5-10.1) mg/dL Magnesium (1.8-2.4) mg/dl C-Reactive Protein (<1.0) mg/dL NT-Pro-B Natriuret Pep (0-450) pg/mL Vancomycin Trough (10.0-20.0) Glenn Results Last 24 Hours: Microbiology 10/22/17 21:30 Aerobic Blood Culture - Preliminary Blood - Venous - Lab Draw NO GROWTH AFTER 2 DAYS Anaerobic Blood Culture - Preliminary Gram Positive Cocci 10/22/17 21:21 Aerobic Blood Culture - Preliminary Blood - Venous NO GROWTH AFTER 2 DAYS Anaerobic Blood Culture - Preliminary Gram Positive Cocci 10/22/17 20:52 Gram Stain - Final Foot, Left Anaerobic Culture - Preliminary Staphylococcus Aureus Med Orders - Current: Current Medications Acetaminophen (Tylenol) 650 mg PO Q4H PRN PRN Reason: Pain (Mild 1-3)/fever Hydrocodone Bitart/Acetaminophen ([place] 325-5 Mg) 1 tab PO Q4H PRN PRN Reason: Pain (moderate 4-6) Last Admin: 10/23/17 21:37 Dose: 1 tab Allopurinol (Zyloprim) 100 mg PO DAILY [facility] Last Admin: 10/24/17 09:45 Dose: 100 mg Aspirin (Halfprin) 81 mg PO DAILY [facility] Last Admin: 10/24/17 09:46 Dose: 81 mg Clopidogrel Bisulfate (Plavix) 75 mg PO DAILY [facility] Last Admin: 10/24/17 09:46 Dose: 75 mg Fenofibrate (Tricor) 145 mg PO DAILY [facility] Last Admin: 10/24/17 09:46 Dose: 145 mg Furosemide (Lasix) 60 mg PO DAILY [facility] Last Admin: 10/24/17 09:46 Dose: 60 mg Heparin Sodium (Porcine) (Heparin Sodium) 5,000 units SUBCUT Q8H [facility] Last Admin: 10/25/17 00:17 Dose: 5,000 units Hydralazine HCl (Apresoline) 20 mg IVPUSH Q4H PRN PRN Reason: Hypertension Piperacillin Sod/Tazobactam (Sod 4.5 gm/ Sodium Chloride) 100 mls @ 25 mls/hr IV Q12H [facility] Last Admin: 10/25/17 01:30 Dose: 25 mls/hr Vancomycin HCl 1.25 gm/ Sodium (Chloride) 250 mls @ 250 mls/hr IV Q24H [facility] Last Admin: 10/25/17 00:17 Dose: 250 mls/hr Insulin Glargine (Lantus Solostar) 10 units SUBCUT 1700 [facility] Last Admin: 10/24/17 17:29 Dose: 10 units Insulin Glargine (Lantus Solostar) 50 units SUBCUT 1100 [facility] Last Admin: 10/24/17 11:49 Dose: 50 units Insulin Human Lispro (Humalog) 0 unit SUBCUT QIDACANDBED [facility]; Protocol Last Admin: 10/25/17 06:55 Dose: Not Given Isosorbide Mononitrate (Imdur) 60 mg PO DAILY [facility] Last Admin: 10/24/17 09:46 Dose: 60 mg Levothyroxine Sodium (Levothroid) 137 mcg PO ACBREAKFAST [facility] Last Admin: 10/25/17 06:24 Dose: 137 mcg Lorazepam (Ativan) 0.5 mg IVPUSH Q6H PRN PRN Reason: Anxiety Magnesium Sulfate (Pharmacy To Dose - Magnesium Replacement) 1 dose .XX ASDIRECTED [facility] Metoprolol Tartrate (Lopressor) 5 mg IVPUSH Q4H PRN PRN Reason: Tachycardia Metoprolol Tartrate (Lopressor) 25 mg PO BID [facility] Last Admin: 10/24/17 21:38 Dose: 25 mg Ondansetron HCl (Zofran Odt) 4 mg PO Q6H PRN PRN Reason: nausea, able to take PO Ondansetron HCl (Zofran) 4 mg IV Q6H PRN PRN Reason: Nausea/Vomiting Potassium Chloride (Pharmacy To Dose - Potassium Replacement) 1 dose .XX ASDIRECTED [facility] Rosuvastatin Calcium (Crestor) 5 mg PO DAILY [facility] Last Admin: 10/24/17 09:47 Dose: 5 mg Saccharomyces Boulardii (Florastor) 250 mg PO DAILY [facility] Last Admin: 10/24/17 09:46 Dose: 250 mg Sodium Chloride (Saline Flush) 10 ml FLUSH ASDIRECTED PRN PRN Reason: Keep Vein Open Last Admin: 10/22/17 21:08 Dose: 10 ml Tramadol HCl (Ultram) 100 mg PO TID PRN PRN Reason: pain Last Admin: 10/25/17 02:00 Dose: 100 mg Vancomycin HCl (Pharmacy To Dose - Vancomycin) 0 dose .XX ASDIRECTED PRN PRN Reason: RX TO DOSE VANCO Discontinued Medications Enoxaparin Sodium (Lovenox) 30 mg SUBCUT DAILY [facility] Last Admin: 10/23/17 08:17 Dose: 30 mg Sodium Chloride (Normal Saline) 1,000 mls @ 999 mls/hr IV ONETIME ONE Stop: 10/22/17 22:54 Last Admin: 10/22/17 23:44 Dose: 999 mls/hr Vancomycin HCl 1.75 gm/ Sodium (Chloride) 500 mls @ 250 mls/hr IV ONETIME ONE Stop: 10/23/17 00:29 Last Admin: 10/23/17 01:34 Dose: Not Given Vancomycin HCl 1 gm/ Sodium (Chloride) 250 mls @ 250 mls/hr IV ONETIME ONE Stop: 10/23/17 00:10 Last Admin: 10/22/17 23:44 Dose: 250 mls/hr Piperacillin Sod/Tazobactam (Sod 2.25 gm/ Sodium Chloride) 100 mls @ 200 mls/ hr IV ONETIME ONE Stop: 10/22/17 23:50 Last Admin: 10/23/17 01:31 Dose: 200 mls/hr Piperacillin Sod/Tazobactam (Sod 4.5 gm/ Sodium Chloride) 100 mls @ 25 mls/hr IV Q8H [facility] Sodium Chloride (Normal Saline) 1,000 mls @ 75 mls/hr IV ASDIRECTED [facility] Stop: 10/24/17 11:00 Last Admin: 10/24/17 01:21 Dose: 75 mls/hr Vancomycin HCl 1 gm/ Sodium (Chloride) 250 mls @ 250 mls/hr IV Q24H [facility] Last Admin: 10/24/17 23:48 Dose: Not Given Vancomycin HCl 1.25 gm/ Sodium (Chloride) 250 mls @ 250 mls/hr IV Q24H [facility] Last Admin: 10/25/17 00:16 Dose: Not Given Iopamidol (Isovue-370 (76%)) 100 ml IVPUSH ONETIME ONE Stop: 10/22/17 21:11 Last Admin: 10/22/17 23:07 Dose: 100 ml Linagliptin [ (Tradjenta] 5 Mg) 0 each PO DAILY [facility] Last Admin: 10/23/17 09:29 Dose: Not Given Potassium Chloride (Klor-Con M20) 40 meq PO ONETIME ONE Stop: 10/24/17 09:01 Last Admin: 10/24/17 09:45 Dose: 40 meq Tramadol HCl (Ultram) 100 mg PO Q12H PRN PRN Reason: pain Last Admin: 10/23/17 14:59 Dose: 100 mg Tramadol HCl (Ultram) 100 mg PO TID PRN PRN Reason: pain - Exam Quality Assessment: DVT Prophylaxis General: Alert, Oriented, Cooperative, No Acute Distress HEENT: Pupils Equal, Pupils Reactive, EOMI, Mucous Membr. Moist/[place] Neck: Supple, Trachea Midline, No JVD Lungs: Clear to Auscultation, Normal Respiratory Effort Cardiovascular: Regular Rate, Regular Rhythm GI/Abdominal Exam: Normal Bowel Sounds, Soft, Non-Tender, No Distention, No Abnormal Bruit (Female) Exam: Deferred Back Exam: Normal Inspection, Full Range of Motion Extremities: No Pedal Edema, Normal Capillary Refill, Other (Bandage on right foot) Peripheral Pulses: 0: Dorsalis Pedis (L), Dorsalis Pedis (R), 2+: Radial (L), Radial (R) Skin: Warm, Dry, Intact Wound/Incisions: Healing Well, Drainage (improving ), Erythema Improving Neurological: No New Focal Deficit Psy/Mental Status: Alert, Normal Affect, Normal Mood - Problem List & Annotations (1) Osteomyelitis SNOMED Code(s): 02902612 Code(s): M86.9 - OSTEOMYELITIS, UNSPECIFIED Status: Suspected Priority: High Current Visit: Yes Qualifiers: Osteomyelitis type: unspecified type Osteomyelitis location: foot Laterality: right Qualified Code(s): M86.9 - Osteomyelitis, unspecified (2) Cellulitis SNOMED Code(s): 200155241 Code(s): L03.90 - CELLULITIS, UNSPECIFIED Status: Acute Priority: High Current Visit: Yes Qualifiers: Site of cellulitis of extremity: lower extremity Laterality: right (3) HTN (hypertension) SNOMED Code(s): 07854854 Code(s): I10 - ESSENTIAL (PRIMARY) HYPERTENSION Status: Chronic Priority : Medium Current Visit: No Qualifiers: Hypertension type: unspecified Qualified Code(s): I10 - Essential (primary ) hypertension (4) CAD (coronary artery disease) SNOMED Code(s): 85731163 Code(s): I25.10 - ATHSCL HEART DISEASE OF [place] CORONARY ARTERY W/O ANG PCTRS Status: Chronic Priority: Medium Current Visit: No Qualifiers: Coronary Disease-Associated Artery/Lesion type: unspecified vessel or lesion type [place] vs. transplanted heart: unspecified whether [place] or transplanted heart Associated angina: angina presence unspecified Qualified Code(s): I25.10 - Atherosclerotic heart disease of [place] coronary artery without angina pectoris (5) Arthritis SNOMED Code(s): 5846181 Code(s): M19.90 - UNSPECIFIED OSTEOARTHRITIS, UNSPECIFIED SITE Status: Chronic Priority: Low Current Visit: No (6) Hypothyroidism SNOMED Code(s): 13143428 Code(s): E03.9 - HYPOTHYROIDISM, UNSPECIFIED Status: Chronic Priority: Low Current Visit: No Qualifiers: Hypothyroidism type: unspecified Qualified Code(s): E03.9 - Hypothyroidism , unspecified (7) Diabetes SNOMED Code(s): 72542024 Code(s): E11.9 - TYPE 2 DIABETES MELLITUS WITHOUT COMPLICATIONS Status: Chronic Priority: Medium Current Visit: Yes Qualifiers: Diabetes mellitus type: type 2 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 Diabetes mellitus complication status: with neurologic complications Diabetes mellitus complication detail: with unspecified neuropathy Qualified Code(s): E11.40 - Type 2 diabetes mellitus with diabetic neuropathy, unspecified; 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.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 (8) Peripheral neuropathy SNOMED Code(s): 054986294 Code(s): G62.9 - POLYNEUROPATHY, UNSPECIFIED Status: Chronic Priority: High Current Visit: Yes Qualifiers: Peripheral neuropathy type: polyneuropathy, unspecified Qualified Code(s): G62.9 - Polyneuropathy, unspecified (9) CKD (chronic kidney disease) stage 4, GFR 15-29 ml/min SNOMED Code(s): 317000822 Code(s): N18.4 - CHRONIC KIDNEY DISEASE, STAGE 4 (SEVERE) Status: Acute Priority: High Current Visit: Yes (10) Hyponatremia SNOMED Code(s): 47683407 Code(s): E87.1 - HYPO-OSMOLALITY AND HYPONATREMIA Status: Resolved Priority: Medium Current Visit: Yes (11) Hypokalemia SNOMED Code(s): 11629880 Code(s): E87.6 - HYPOKALEMIA Status: Acute Priority: High Current Visit : Yes (12) Restless leg syndrome SNOMED Code(s): 40763299 Code(s): G25.81 - RESTLESS LEGS SYNDROME Status: Acute Priority: High Current Visit: Yes - Problem List Review Problem List Initiated/Reviewed/Updated: Yes - My Orders Last 24 Hours: My Active Orders 10/24/17 09:03 Central Line PICC Insertion [Central Venous Line Insertion] [OM.PC] Routine 10/24/17 09:04 PICC Line [Central Line Insert Checklist] [RC] ASDIRECTED 10/24/17 12:14 Blood Culture x2 Reflex Set [OM.PC] Stat 10/24/17 15:00 traMADol [Ultram] 100 mg PO TID PRN 10/24/17 21:37 CULTURE BLOOD [BC] Stat 10/24/17 21:42 CULTURE BLOOD [BC] Stat 10/25/17 06:18 BASIC METABOLIC PANEL,BMP [CHEM] AM CRP [C-REACTIVE PROTEIN] [CHEM] AM MAGNESIUM [CHEM] AM 10/26/17 05:11 BASIC METABOLIC PANEL,BMP [CHEM] AM CBC WITH AUTO DIFF [HEME] AM CRP [C-REACTIVE PROTEIN] [CHEM] AM MAGNESIUM [CHEM] AM 10/27/17 05:11 BASIC METABOLIC PANEL,BMP [CHEM] AM CBC WITH AUTO DIFF [HEME] AM CRP [C-REACTIVE PROTEIN] [CHEM] AM MAGNESIUM [CHEM] AM - Plan Plan:: I/P: Cellulitis of right foot with osteomyelitis, improving -Reports she has had ulcers on right ventral and medial right foot prior -Has been seeing Dr. Brown (podiatry) for this - he prescribed a salve -Has been seeing PT for woundcare -Denies fever or any other infectious symptoms, however has had decreased appetite -Approximately 2cm wound with purulent drainage. -Risk factors: Diabetic, history of CAD, peripheral neuropathy with no sensation to either leg -Blood sugars have been in the 200's; A1C 7.7 -No leukocytosis-->11.35, CRP 28.2-->20.5-->15.1-->12.9 -Lactic acid WNL -Blood cultures obtained - Gram positive cocci so far -Wound cultures - Staph aureus -> rivera sensitive -Vancomycin and zosyn started in ED - continue -CT Scan on 10/22/17: 1. Soft tissue swelling compatible with cellulitis. Ulcers noted within the medial foot at the level of first metatarsal. 2. Erosions within the distal first metatarsal head as well as the basal proximal found except of the first toe. These erosions are compatible with osteomyelitis. 3. Osteopenia and degenerative change. -MRI ordered for 10/23/17: 1. Diffuse soft tissue edema compatible with cellulitis. Soft tissue erosion as noted above. 2. Edema within the shaft and distal head of the first metatarsal as well throughout a large portion of the proximal phalanx of the first toe. Cortical erosions are seen within both these digits and findings are compatible with osteomyelitis. 3. No other areas of bone marrow edema are seen. -Probiotic -Wound care daily as directed -PT/nursing -PT/OT -Dr. Beckett (orthopedics) consulted and recommendin. No surgical intervention/debridement warranted at this time. 2. Close monitoring in hospital and follow-up weekly with him at discharge 3. Continue IV antibiotics 4. Place PICC line for long-term IV antibiotics (6 weeks) 5. May need infectious disease consult for poly-microbial Bacteremia -2/2 above -Positive for gram positive cocci in 2 bottles -Repeat culture last night at 2130 -> pending -Continue IV antibiotics as above CKD stage 4, improving -Baseline appears to be around 2.0 for creatinine with GFR in middle 20's -BUN 47-->42-->33-->32 -Creatinine 2.2-->2.0-->1.6-->1.8 -eGFR 22-->24-->31-->27 -Will switch from lovenox to heparin -Hold ACEI -Home PO lasix for now -IV fluids as ordered -Consider nephrology consult upon discharge Hypokalemia -Potassium 3.3 -Pharmacy to monitor and supplement Diarrhea -C. Diff study ordered -Started today -Will determine treatment after results of c.diff Restless leg syndrome -Longstanding history of pain at night, improved by pumping legs -Has been taking OTC herbal supplements in high amounts -> discontinued -? 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 Ty
[2017-10-25] MEDS ORDERED: LORazepam 0.5 MG Tab PO PRN ×2 (07:34→07:37)
[2017-10-25] MEDS: Clopidogrel 75 MG Tab PO SCH (08:20)
[2017-10-25] MEDS: Fenofibrate Nanocrystallized 145 MG Tab PO SCH (08:20)
[2017-10-25] MEDS: Metoprolol Tartrate 25 MG Tab PO SCH (08:21)
[2017-10-25] MEDS: Allopurinol 100 MG Tab PO SCH (08:21)
[2017-10-25] MEDS: Isosorbide Mononitrate 60 MG Tab.ER PO SCH (08:22)
[2017-10-25] MEDS: Saccharomyces Boulardii (Probiotic) 250 MG Cap PO SCH (08:23)
[2017-10-25] MEDS: Furosemide 40 MG Tab PO SCH (08:23)
[2017-10-25] MEDS: Rosuvastatin 10 MG Tab PO SCH (08:24)
[2017-10-25] MEDS: Aspirin 81 MG Tab.EC PO SCH (08:24)
[2017-10-25] MEDS ORDERED: Potassium Chloride 20 MEQ Tab.ER PO SCH (09:00)
[2017-10-25] MEDS: Insulin Glargine,Human Rec. Analog 100 Units/ML 3 ML Pen SUBCUT SCH (11:46)
[2017-10-25 13:01] VITALS: BP 100/53
--- NOTE | 2017-10-25 14:42 | PCM.DCSUM1 ---
Discharge Summary - Hospital Course HPI Initial Comments: Sydnee Perez is a 77 yo female who presented to our ED yesterday evening with an ulcer to her right foot. She reports that she saw Dr. Kat prior and has been doing that with this for some time. She reports he had been having her put a salve on it and she had been seeing physical therapy. She reports that it had been improving prior, however it became worse the last few days and prior to reporting the ED was told that it looked infected and she needed to be seen for antibiotics. She denied any fever, chills, nausea, vomiting. She did report a decreased appetite. She reports she has fairly severe diabetic neuropathy and has no sensation to either leg. Denies any numbness or tingling. She is a diabetic and reports her sugars are normally in the 200s. On arrival in the ED temp was 98.9. Pulse 62. Respirations 15. BP 113/54. Pulse ox 93%. She was noted to have a 2 cm ulcerative wound to the ventral medial right foot with purulent drainage. There is also associated surrounding erythema and swelling. Labs are obtained: WBC is normal at 9.52. Hemoglobin 11.4. Hematocrit 33.8. She is normocytic. Plus her normal 368,000. Neutrophils were elevated at 88%. There is no bandemia. Sodium was low at 133. Potassium 3.9. Chloride 94. Carbon dioxide 31. Anion gap 11.9. BUN is high at 47. Creatinine is very high at 2.2. EGFR is 22. Glucose is 170. Calcium is 9.3. Total bilirubin 0.4. AST is 37 ALT 25, alkaline phosphatase 50. CRP is very high at 20.2. Albumin is low at 2.7. It is 1.4. UA is negative however 2+ occult blood and 1+ leukoesterase are noted. Few bacteria are seen. She is given a 1 L fluid bolus. She was started on vancomycin and Zosyn. CT of the foot is obtained and interpreted by Dr. Reddy as "1. Soft tissue swelling compatible with cellulitis. Ulcers noted within the medial foot at the level of the first metatarsal. 2. Erosions within the distal first metatarsal head as well as base of the proximal phalanx of the first toe. These erosions are compatible with osteomyelitis. 3. Osteopenia and degenerative change." He carries a history of: Hypertension, PTCA with stent, arthritis, type II DM, hypothyroidism. She is a former smoker who quit in 1987. Her PCP is Dr. Ty. She is subsequently admitted to the medical floor as a full code. Diagnosis: Stroke: No - Discharge Data Discharge Date: 10/25/17 (Admit Date: 10/22/17) Discharge Disposition: DC/Tfer to Acute Hospital 02 Condition: Fair - Discharge Diagnosis/Problem(s) (1) Osteomyelitis SNOMED Code(s): 19368844 ICD Code: M86.9 - OSTEOMYELITIS, UNSPECIFIED Status: Suspected Priority: High Current Visit: Yes Qualifiers: Osteomyelitis type: unspecified type Osteomyelitis location: foot Laterality: right Qualified Code(s): M86.9 - Osteomyelitis, unspecified (2) Cellulitis SNOMED Code(s): 132020823 ICD Code: L03.90 - CELLULITIS, UNSPECIFIED Status: Acute Priority: High Current Visit: Yes Qualifiers: Site of cellulitis of extremity: lower extremity Laterality: right (3) HTN (hypertension) SNOMED Code(s): 93164247 ICD Code: I10 - ESSENTIAL (PRIMARY) HYPERTENSION Status: Chronic Priority : Medium Current Visit: No Qualifiers: Hypertension type: unspecified Qualified Code(s): I10 - Essential (primary ) hypertension (4) CAD (coronary artery disease) SNOMED Code(s): 21315713 ICD Code: I25.10 - ATHSCL HEART DISEASE OF [place] CORONARY ARTERY W/O ANG PCTRS Status: Chronic Priority: Medium Current Visit: No Qualifiers: Coronary Disease-Associated Artery/Lesion type: unspecified vessel or lesion type [place] vs. transplanted heart: unspecified whether [place] or transplanted heart Associated angina: angina presence unspecified Qualified Code(s): I25.10 - Atherosclerotic heart disease of [place] coronary artery without angina pectoris (5) Arthritis SNOMED Code(s): 4608923 ICD Code: M19.90 - UNSPECIFIED OSTEOARTHRITIS, UNSPECIFIED SITE Status: Chronic Priority: Low Current Visit: No (6) Hypothyroidism SNOMED Code(s): 07879967 ICD Code: E03.9 - HYPOTHYROIDISM, UNSPECIFIED Status: Chronic Priority: Low Current Visit: No Qualifiers: Hypothyroidism type: unspecified Qualified Code(s): E03.9 - Hypothyroidism , unspecified (7) Diabetes SNOMED Code(s): 64133294 ICD Code: E11.9 - TYPE 2 DIABETES MELLITUS WITHOUT COMPLICATIONS Status: Chronic Priority: Medium Current Visit: Yes Qualifiers: Diabetes mellitus type: type 2 Diabetes mellitus assisted insulin use: with assisted use Diabetes mellitus complication status: with neurologic complications Diabetes mellitus complication detail: with unspecified neuropathy Qualified Code(s): E11.40 - Type 2 diabetes mellitus with diabetic neuropathy, unspecified; Z79.4 - senior living (current) use of insulin (8) Peripheral neuropathy SNOMED Code(s): 357297343 ICD Code: G62.9 - POLYNEUROPATHY, UNSPECIFIED Status: Chronic Priority: High Current Visit: Yes Qualifiers: Peripheral neuropathy type: polyneuropathy, unspecified Qualified Code(s): G62.9 - Polyneuropathy, unspecified (9) CKD (chronic kidney disease) stage 4, GFR 15-29 ml/min SNOMED Code(s): 343706766 ICD Code: N18.4 - CHRONIC KIDNEY DISEASE, STAGE 4 (SEVERE) Status: Acute Priority: High Current Visit: Yes (10) Hyponatremia SNOMED Code(s): 47967086 ICD Code: E87.1 - HYPO-OSMOLALITY AND HYPONATREMIA Status: Resolved Priority: Medium Current Visit: Yes (11) Hypokalemia SNOMED Code(s): 42774753 ICD Code: E87.6 - HYPOKALEMIA Status: Acute Priority: High Current Visit: Yes (12) Restless leg syndrome SNOMED Code(s): 83847464 ICD Code: G25.81 - RESTLESS LEGS SYNDROME Status: Acute Priority: High Current Visit: Yes - Patient Summary/Data Consults: Consultations 10/23/17 08:32 Consult to Physician [CONS] Routine 10/23/17 08:37 Consult to Case Management/Mailing Machine Helper [CONS] Routine OT Evaluation and Treatment [CONS] Routine PT Evaluation and Treatment [CONS] Routine 10/23/17 09:35 Consult to Spiritual Care [CONS] Routine 10/23/17 13:10 Consult to Diabetic Nurse Specialist [CONS] Routine Consult to Hedge Trimmer [CONS] Routine 10/23/17 18:10 Consult to Physical Therapy [PT Evaluation and Treatment] [CONS] Routine Labs Pending at D/C: Repeat Blood Cultures from 2130 on 10/25/17 C. Diff pending Hospital Course: I/P: Cellulitis of right foot with osteomyelitis, improving -Reports she has had ulcers on right ventral and medial right foot prior -Has been seeing Dr. Brown (podiatry) for this - he prescribed a salve -Has been seeing PT for woundcare -Denies fever or any other infectious symptoms, however has had decreased appetite -Approximately 2cm wound with purulent drainage. -Risk factors: Diabetic, history of CAD, peripheral neuropathy with no sensation to either leg -Blood sugars have been in the 200's; A1C 7.7 -No leukocytosis-->11.35, CRP 28.2-->20.5-->15.1-->12.9 -Lactic acid WNL -Blood cultures obtained - Gram positive cocci so far -Wound cultures - Staph aureus -> rivera sensitive -Vancomycin and zosyn started in ED - continue -CT Scan on 10/22/17: 1. Soft tissue swelling compatible with cellulitis. Ulcers noted within the medial foot at the level of first metatarsal. 2. Erosions within the distal first metatarsal head as well as the basal proximal found except of the first toe. These erosions are compatible with osteomyelitis. 3. Osteopenia and degenerative change. -MRI ordered for 10/23/17: 1. Diffuse soft tissue edema compatible with cellulitis. Soft tissue erosion as noted above. 2. Edema within the shaft and distal head of the first metatarsal as well throughout a large portion of the proximal phalanx of the first toe. Cortical erosions are seen within both these digits and findings are compatible with osteomyelitis. 3. No other areas of bone marrow edema are seen. -Probiotic -Wound care daily as directed -PT/nursing -PT reports wound looks worse today and has minimal tissue before bone is exposed -PT/OT -Dr. Beckett (orthopedics) consulted and recommendin. No surgical intervention/debridement warranted at this time. 2. Close monitoring in hospital and follow-up weekly with him at discharge 3. Continue IV antibiotics 4. Place PICC line for long-term IV antibiotics (6 weeks) 5. May need infectious disease consult for poly-microbial Bacteremia -2/2 above -Positive for gram positive cocci in 2 bottles -Repeat culture last night at 2130 -> pending -Continue IV antibiotics as above CKD stage 4 -Baseline appears to be around 2.0 for creatinine with GFR in middle 20's -BUN 47-->42-->33-->32 -Creatinine 2.2-->2.0-->1.6-->1.8 -eGFR 22-->24-->31-->27 -Will switch from lovenox to heparin -Hold ACEI -Home PO lasix for now -IV fluids as ordered -Consider nephrology consult upon discharge Hypokalemia -Potassium 3.3 -Pharmacy to monitor and supplement Diarrhea -C. Diff study ordered -Started today -Will determine treatment after results of c.diff Restless leg syndrome -Longstanding history of pain at night, improved by pumping legs -Has been taking OTC herbal supplements in high amounts -> discontinued -? effects on kidney function -Reportedly takes Tramadol TID PRN for pain - hoping to decrease frequency -Will start Requip and advance dose as needed -Will need PCP follow-up for continued dose adjustments and monitoring Resolved: Hyponatremia, mild -Sodium 133-->134-->138 -IV fluids as ordered -Monitor Chronic: CAD HTN Arthritis Type II DM Hypothyroidism Plan: Admit to medical floor Other orders as indicated above SS insulin in addition to home long acting insulin Home medications as ordered Routine AM labs Contact precautions Obtain old records rn diabetes educator consult Hedge Trimmer consult DVT/PE Prophylaxis: Heparin Code status: Full code; PCP: Dr. Karson Randhawa was transferred today to [facility] with Dr. Hernandez accepting. She developed mild leukocytosis today however her CRP was improved. She has continued to receive zosyn and vancomycin. Today PT reported that wound appears to look deeper than thought and is opening up slightly. A minimal amount of skin is covering the bone. Dr. Beckett was contacted and feels the patient will need continued broad spectrum antibiotics even though the wound is growing out non-MRSA Staph Aureus thus far. Just prior to discharge it is noted her wound is also growing out another anaerobic gram positive cocci. Blood cultures were positive for gram positive cocci. No sensitivities yet. Repeat BC was obtained last night as she has received 48 hours of IV antibiotics. These are still pending. Her creatinine on arrival was 2.2. It appears her baseline is around 2. She has never seen nephrology. She had been taking an herbal OTC RLS medication and this was stopped. Plan was to start Requip tonight and advance tomorrow. She has also been using tramadol for RLS pain. Her potassium was low and was supplemented. Plan was to place a PICC line yesterday, however because of her low GFR anesthesia contacted nephrology at [facility] in [place] and the recommendation was to place PICC in dominant hand. It was noted however that if she was in a location with more advanced care she would have a different procedure. Discussed case with Dr. Beckett today and he feels she would benefit from infectious disease and nephrology. He also advised that he discussed the case with anesthesiology and they would not clear her for any type of surgery. He recommended transfer for higher level of care. Contacted Dr. Hernandez with [facility] in [place] and he accepts the patient. She will be transferred via ambulance. - Discharge Plan *PRESCRIPTION DRUG MONITORING PROGRAM REVIEWED*: No *COPY OF PRESCRIPTION DRUG MONITORING REPORT IN PATIENT JOO: No Home Medications: Home Meds Furosemide [Lasix] 60 mg PO DAILY 11/16/13 [History] Insulin Lispro Prot/Lispro [HumaLOG Mix 75-25] 0 unit SQ DAILY PRN 11/16/13 [ History] Isosorbide Mononitrate [Imdur] 60 mg PO DAILY 11/16/13 [History] Levothyroxine [Levothroid] 137 mcg PO DAILY 11/16/13 [History] Metoprolol Tartrate 50 mg PO DAILY 11/16/13 [History] Rosuvastatin [Crestor] 5 mg PO DAILY 11/16/13 [History] Allopurinol [Zyloprim] 100 mg PO DAILY 07/28/14 [History] Aspirin [Halfprin] 81 mg PO DAILY 07/28/14 [History] Biotin 10,000 mcg PO DAILY 07/28/14 [History] Ca Carb & Gluc/Mag Ox & Gluc [Calcium Magnesium Caplet] 1 tab PO TID 07/28/14 [ History] Cholecalciferol (Vitamin D3) [D3-2000] 1,000 unit PO DAILY 07/28/14 [History] Linagliptin [Tradjenta] 5 mg PO DAILY 07/28/14 [History] Fenofibrate Nanocrystallized [Tricor] 145 mg PO DAILY 10/22/17 [History] Insulin Aspart [NovoLOG] 0 unit SQ WITHMEALSANDBED 10/22/17 [History] Ramipril [Altace] 5 mg PO BEDTIME 10/22/17 [History] Clopidogrel [Plavix] 75 mg PO DAILY 10/23/17 [History] Insulin Glarg,Human.Rec.Analog [Lantus] 0 unit SUBCUT DAILY 10/23/17 [History] Insulin Glarg,Human.Rec.Analog [Lantus] 10 unit SUBCUT 1700 10/23/17 [History] Insulin Glarg,Human.Rec.Analog [Lantus] 50 unit SUBCUT 1100 10/23/17 [History] traMADol [Ultram] 100 mg PO TID PRN 10/23/17 [History] Patient's Own Medication [Ptom] 1 - 2 each PO Q4HR PRN 10/24/17 [History] Patient's Own Medication [Ptom] 2 - 3 tab PO Q4HR PRN 10/24/17 [History] Patient Handouts: Bone and Joint Infections, Adult, Wound Infection, Easy-to- Read, Cellulitis, Adult, [id number], Bacteremia Referrals: Henry Beckett MD [Physician] - Baudilio Ty MD [Primary Care Provider] - - Discharge Summary/Plan Comment DC Time >30 min.: Yes (45 mins ) - General Info Date of Service: 10/25/17 Admission Dx/Problem (Free Text: Admission Diagnosis/Problem Admission Diagnosis/Problem Cellulitis Subjective Update: In to see Sydnee. She is lying in bed and doing well otherwise. She has developed some diarrhea, likely from the antibiotics. C. Diff was obtained and is negative. She is on a probiotic. Dr. Beckett and I discuss plan of care and decision is made to transfer patientHolley Kendall accepts under the hospitalist service. Patient will be transferred via ambulance. Functional Status: Reports: Pain Controlled, Tolerating Diet, Ambulating, Urinating. Denies: New Symptoms - Review of Systems General: Reports: No Symptoms. Denies: Fever, Weakness, Fatigue, Malaise HEENT: Reports: No Symptoms. Denies: Eye Pain Pulmonary: Reports: No Symptoms. Denies: Shortness of Breath, Cough, Other Cardiovascular: Reports: No Symptoms. Denies: Chest Pain, Palpitations, Dyspnea on Exertion Gastrointestinal: Reports: Diarrhea. Denies: Abdominal Pain, Constipation, Decreased Appetite, Nausea, Vomiting Genitourinary: Reports: No Symptoms Musculoskeletal: Reports: No Symptoms. Denies: Leg Pain Skin: Reports: No Symptoms Neurological: Reports: No Symptoms. Denies: Confusion, Dizziness, Numbness, Tingling, Trouble Speaking, Weakness Psychiatric: Reports: No Symptoms - Patient Data Vitals - Most Recent: Last Vital Signs Temp 98.8 F 10/25/17 11:49 Pulse 58 L 10/25/17 11:49 Resp 20 10/25/17 11:49 BP 100/53 L 10/25/17 11:49 Pulse Ox 97 10/25/17 11:49 Weight - Most Recent: 169 lb 11.2 oz I&O - Last 24 hours: Intake & Output 10/24/17 10/25/17 10/25/17 22:59 06:59 14:59 Intake Total 2755 1150 320 Output Total 1100 300 Balance 1655 850 320 Lab Results - Last 24 hrs: Laboratory Results - last 24 hr 10/24/17 10/24/17 10/24/17 Range/Units 16:58 21:27 23:00 WBC (3.98-10.04) K/mm3 RBC (3.98-5.22) M/mm3 Hgb (11.2-15.7) gm/L Hct (34.1-44.9) % MCV (79.4-94.8) fl MCH (25.6-32.2) pg MCHC (32.2-35.5) g/dl RDW Std Deviation (36.4-46.3) fL Plt Count (182-369) K/mm3 MPV (9.4-12.3) fl Neut % (Auto) (34.0-71.1) % Lymph % (Auto) (19.3-51.7) % [place] % (Auto) (4.7-12.5) % Eos % (Auto) (0.7-5.8) Baso % (Auto) (0.1-1.2) % Neut # (Auto) (1.56-6.13) K/mm3 Lymph # (Auto) (1.18-3.74) K/mm3 [place] # (Auto) (0.24-0.36) K/mm3 Eos # (Auto) (0.04-0.36) K/mm3 Baso # (Auto) (0.01-0.08) K/mm3 Sodium (136-145) mEq/L Potassium (3.5-5.1) mEq/L Chloride (98-107) mEq/L Carbon Dioxide (21-32) mEq/L Anion Gap (5-15) BUN (7-18) mg/dL Creatinine (0.55-1.02) mg/dL Est Cr Clr Drug Dosing mL/min Estimated GFR (MDRD) (>60) mL/min BUN/Creatinine Ratio (14-18) Glucose (83-115) mg/dL POC Glucose 193 H 257 H (83-110) mg/dL Calcium (8.5-10.1) mg/dL Magnesium (1.8-2.4) mg/dl C-Reactive Protein (<1.0) mg/dL Vancomycin Trough 10.5 (10.0-20.0) 10/25/17 10/25/17 10/25/17 Range/Units 06:18 06:18 06:20 WBC 11.35 H (3.98-10.04) K/mm3 RBC 3.45 L (3.98-5.22) M/mm3 Hgb 10.0 L (11.2-15.7) gm/L Hct 30.5 L (34.1-44.9) % MCV 88.4 (79.4-94.8) fl MCH 29.0 (25.6-32.2) pg MCHC 32.8 (32.2-35.5) g/dl RDW Std Deviation 41.7 (36.4-46.3) fL Plt Count 368 (182-369) K/mm3 MPV 8.9 L (9.4-12.3) fl Neut % (Auto) 74.8 H (34.0-71.1) % Lymph % (Auto) 12.2 L (19.3-51.7) % [place] % (Auto) 10.6 (4.7-12.5) % Eos % (Auto) 1.3 (0.7-5.8) Baso % (Auto) 0.4 (0.1-1.2) % Neut # (Auto) 8.50 H (1.56-6.13) K/mm3 Lymph # (Auto) 1.38 (1.18-3.74) K/mm3 [place] # (Auto) 1.20 H (0.24-0.36) K/mm3 Eos # (Auto) 0.15 (0.04-0.36) K/mm3 Baso # (Auto) 0.04 (0.01-0.08) K/mm3 Sodium 138 (136-145) mEq/L Potassium 3.3 L (3.5-5.1) mEq/L Chloride 102 (98-107) mEq/L Carbon Dioxide 28 (21-32) mEq/L Anion Gap 11.3 (5-15) BUN 32 H (7-18) mg/dL Creatinine 1.8 H (0.55-1.02) mg/dL Est Cr Clr Drug Dosing 18.80 mL/min Estimated GFR (MDRD) 27 (>60) mL/min BUN/Creatinine Ratio 17.8 (14-18) Glucose 76 L (83-115) mg/dL POC Glucose 67 L (83-110) mg/dL Calcium 8.6 (8.5-10.1) mg/dL Magnesium 1.9 (1.8-2.4) mg/dl C-Reactive Protein 12.9 H* (<1.0) mg/dL Vancomycin Trough (10.0-20.0) 10/25/17 10/25/17 Range/Units 06:48 11:12 WBC (3.98-10.04) K/mm3 RBC (3.98-5.22) M/mm3 Hgb (11.2-15.7) gm/L Hct (34.1-44.9) % MCV (79.4-94.8) fl MCH (25.6-32.2) pg MCHC (32.2-35.5) g/dl RDW Std Deviation (36.4-46.3) fL Plt Count (182-369) K/mm3 MPV (9.4-12.3) fl Neut % (Auto) (34.0-71.1) % Lymph % (Auto) (19.3-51.7) % [place] % (Auto) (4.7-12.5) % Eos % (Auto) (0.7-5.8) Baso % (Auto) (0.1-1.2) % Neut # (Auto) (1.56-6.13) K/mm3 Lymph # (Auto) (1.18-3.74) K/mm3 [place] # (Auto) (0.24-0.36) K/mm3 Eos # (Auto) (0.04-0.36) K/mm3 Baso # (Auto) (0.01-0.08) K/mm3 Sodium (136-145) mEq/L Potassium (3.5-5.1) mEq/L Chloride (98-107) mEq/L Carbon Dioxide (21-32) mEq/L Anion Gap (5-15) BUN (7-18) mg/dL Creatinine (0.55-1.02) mg/dL Est Cr Clr Drug Dosing mL/min Estimated GFR (MDRD) (>60) mL/min BUN/Creatinine Ratio (14-18) Glucose (83-115) mg/dL POC Glucose 100 226 H (83-110) mg/dL Calcium (8.5-10.1) mg/dL Magnesium (1.8-2.4) mg/dl C-Reactive Protein (<1.0) mg/dL Vancomycin Trough (10.0-20.0) EMIL Results - Last 24 hrs: Microbiology 10/22/17 20:52 Gram Stain - Final Foot, Left Anaerobic Culture - Preliminary Staphylococcus Aureus Anaerobic Gram Positive Cocci 10/22/17 21:21 Aerobic Blood Culture - Preliminary Blood - Venous NO GROWTH AFTER 2 DAYS Anaerobic Blood Culture - Preliminary Gram Positive Cocci 10/22/17 21:30 Aerobic Blood Culture - Preliminary Blood - Venous - Lab Draw NO GROWTH AFTER 2 DAYS Anaerobic Blood Culture - Preliminary Gram Positive Cocci Med Orders - Current: Current Medications Acetaminophen (Tylenol) 650 mg PO Q4H PRN PRN Reason: Pain (Mild 1-3)/fever Hydrocodone Bitart/Acetaminophen ([place] 325-5 Mg) 1 tab PO Q4H PRN PRN Reason: Pain (moderate 4-6) Last Admin: 10/23/17 21:37 Dose: 1 tab Allopurinol (Zyloprim) 100 mg PO DAILY [facility] Last Admin: 10/25/17 08:21 Dose: 100 mg Aspirin (Halfprin) 81 mg PO DAILY [facility] Last Admin: 10/25/17 08:24 Dose: 81 mg Clopidogrel Bisulfate (Plavix) 75 mg PO DAILY [facility] Last Admin: 10/25/17 08:20 Dose: 75 mg Fenofibrate (Tricor) 145 mg PO DAILY [facility] Last Admin: 10/25/17 08:20 Dose: 145 mg Furosemide (Lasix) 60 mg PO DAILY [facility] Last Admin: 10/25/17 08:23 Dose: 60 mg Heparin Sodium (Porcine) (Heparin Sodium) 5,000 units SUBCUT Q8H [facility] Last Admin: 10/25/17 08:25 Dose: 5,000 units Hydralazine HCl (Apresoline) 20 mg IVPUSH Q4H PRN PRN Reason: Hypertension Piperacillin Sod/Tazobactam (Sod 4.5 gm/ Sodium Chloride) 100 mls @ 25 mls/hr IV Q12H [facility] Last Admin: 10/25/17 13:27 Dose: 25 mls/hr Vancomycin HCl 1.25 gm/ Sodium (Chloride) 250 mls @ 250 mls/hr IV Q24H [facility] Last Admin: 10/25/17 00:17 Dose: 250 mls/hr Insulin Glargine (Lantus Solostar) 10 units SUBCUT 1700 [facility] Last Admin: 10/24/17 17:29 Dose: 10 units Insulin Glargine (Lantus Solostar) 50 units SUBCUT 1100 [facility] Last Admin: 10/25/17 11:46 Dose: 50 units Insulin Human Lispro (Humalog) 0 unit SUBCUT QIDACANDBED [facility]; Protocol Last Admin: 10/25/17 11:44 Dose: 4 unit Isosorbide Mononitrate (Imdur) 60 mg PO DAILY [facility] Last Admin: 10/25/17 08:22 Dose: 60 mg Levothyroxine Sodium (Levothroid) 137 mcg PO ACBREAKFAST [facility] Last Admin: 10/25/17 06:24 Dose: 137 mcg Lorazepam (Ativan) 0.5 mg PO Q6H PRN PRN Reason: Anxiety Magnesium Sulfate (Pharmacy To Dose - Magnesium Replacement) 1 dose .XX ASDIRECTED [facility] Metoprolol Tartrate (Lopressor) 5 mg IVPUSH Q4H PRN PRN Reason: Tachycardia Metoprolol Tartrate (Lopressor) 25 mg PO BID [facility] Last Admin: 10/25/17 08:21 Dose: 25 mg Ondansetron HCl (Zofran Odt) 4 mg PO Q6H PRN PRN Reason: nausea, able to take PO Ondansetron HCl (Zofran) 4 mg IV Q6H PRN PRN Reason: Nausea/Vomiting Potassium Chloride (Pharmacy To Dose - Potassium Replacement) 1 dose .XX ASDIRECTED [facility] Potassium Chloride (Klor-Con M20) 40 meq PO BID [facility] Stop: 10/25/17 21:01 Last Admin: 10/25/17 08:34 Dose: 40 meq Ropinirole HCl (Requip) 0.25 mg PO BEDTIME ONE Stop: 10/25/17 21:01 Ropinirole HCl (Requip) 0.5 mg PO BEDTIME [facility] Rosuvastatin Calcium (Crestor) 5 mg PO DAILY [facility] Last Admin: 10/25/17 08:24 Dose: 5 mg Saccharomyces Boulardii (Florastor) 250 mg PO DAILY [facility] Last Admin: 10/25/17 08:23 Dose: 250 mg Sodium Chloride (Saline Flush) 10 ml FLUSH ASDIRECTED PRN PRN Reason: Keep Vein Open Last Admin: 10/22/17 21:08 Dose: 10 ml Tramadol HCl (Ultram) 100 mg PO TID PRN PRN Reason: pain Last Admin: 10/25/17 02:00 Dose: 100 mg Vancomycin HCl (Pharmacy To Dose - Vancomycin) 0 dose .XX ASDIRECTED PRN PRN Reason: RX TO DOSE VANCO Discontinued Medications Enoxaparin Sodium (Lovenox) 30 mg SUBCUT DAILY [facility] Last Admin: 10/23/17 08:17 Dose: 30 mg Sodium Chloride (Normal Saline) 1,000 mls @ 999 mls/hr IV ONETIME ONE Stop: 10/22/17 22:54 Last Admin: 10/22/17 23:44 Dose: 999 mls/hr Vancomycin HCl 1.75 gm/ Sodium (Chloride) 500 mls @ 250 mls/hr IV ONETIME ONE Stop: 10/23/17 00:29 Last Admin: 10/23/17 01:34 Dose: Not Given Vancomycin HCl 1 gm/ Sodium (Chloride) 250 mls @ 250 mls/hr IV ONETIME ONE Stop: 10/23/17 00:10 Last Admin: 10/22/17 23:44 Dose: 250 mls/hr Piperacillin Sod/Tazobactam (Sod 2.25 gm/ Sodium Chloride) 100 mls @ 200 mls/ hr IV ONETIME ONE Stop: 10/22/17 23:50 Last Admin: 10/23/17 01:31 Dose: 200 mls/hr Piperacillin Sod/Tazobactam (Sod 4.5 gm/ Sodium Chloride) 100 mls @ 25 mls/hr IV Q8H [facility] Sodium Chloride (Normal Saline) 1,000 mls @ 75 mls/hr IV ASDIRECTED [facility] Stop: 10/24/17 11:00 Last Admin: 10/24/17 01:21 Dose: 75 mls/hr Vancomycin HCl 1 gm/ Sodium (Chloride) 250 mls @ 250 mls/hr IV Q24H [facility] Last Admin: 10/24/17 23:48 Dose: Not Given Vancomycin HCl 1.25 gm/ Sodium (Chloride) 250 mls @ 250 mls/hr IV Q24H [facility] Last Admin: 10/25/17 00:16 Dose: Not Given Iopamidol (Isovue-370 (76%)) 100 ml IVPUSH ONETIME ONE Stop: 10/22/17 21:11 Last Admin: 10/22/17 23:07 Dose: 100 ml Lorazepam (Ativan) 0.5 mg IVPUSH Q6H PRN PRN Reason: Anxiety Lorazepam (Ativan) 0.25 mg PO Q6H PRN PRN Reason: Anxiety Linagliptin [ (Tradjenta] 5 Mg) 0 each PO DAILY [facility] Last Admin: 10/23/17 09:29 Dose: Not Given Potassium Chloride (Klor-Con M20) 40 meq PO ONETIME ONE Stop: 10/24/17 09:01 Last Admin: 10/24/17 09:45 Dose: 40 meq Tramadol HCl (Ultram) 100 mg PO Q12H PRN PRN Reason: pain Last Admin: 10/23/17 14:59 Dose: 100 mg Tramadol HCl (Ultram) 100 mg PO TID PRN PRN Reason: pain - Exam Quality Assessment: Reports: DVT Prophylaxis General: Reports: Alert, Oriented, Cooperative, No Acute Distress HEENT: Reports: Pupils Equal, Pupils Reactive, EOMI, Mucous Membr. Moist/[place] Neck: Reports: Supple, Trachea Midline, No JVD Lungs: Reports: Clear to Auscultation, Normal Respiratory Effort Cardiovascular: Reports: Regular Rate, Regular Rhythm GI/Abdominal Exam: Normal Bowel Sounds, Soft, Non-Tender, No Distention, No Abnormal Bruit (Female) Exam: Deferred Rectal (Female) Exam: Deferred Back Exam: Reports: Normal Inspection, Full Range of Motion Extremities: Normal Range of Motion, Non-Tender, No Pedal Edema, Normal Capillary Refill, Increased Warmth (stable), Other (Leg discoloration compatable with PVD. ) Skin: Reports: Warm, Dry, Intact Wound/Incisions: Reports: Dressing Dry and Intact, Drainage, Erythema Neurological: Reports: No New Focal Deficit Psy/Mental Status: Reports: Alert, Normal Affect, Normal Mood
--- NOTE | 2017-10-25 16:19 | PCM.SN ---
- Free Text/Narrative Note: Lab work this morning was reviewed. Sydnee's kidney function has declined form her lab results yesterday afternoon. I visited with Dr. Beckett this morning to verify he wanted to proceed with the PICC line. His recommendation to the team would be to transfer her to a higher level acuity center. She has a running IV in place. At this time I will hold off on the PICC line, and let the accepting center decide what type of line they would prefer to use in her management. PICCs should be avoided if GFR <30 and the patient has end-stage renal disease. Tunneled jugular lines are recommended to be placed instead of PICC lines if possible. I spoke with MAYITO Contreras Hospitalist this afternoon. He will visit with Dr. Beckett regarding Sydnee and let me know if further assistance from anesthesia is needed.
[2017-10-25] MEDS ORDERED: rOPINIRole 0.25 MG Tab PO ONE (21:00)
[2017-10-26] MEDS ORDERED: rOPINIRole 0.25 MG Tab PO SCH (21:00)
== END 2017-10-25 16:48 | DRG 638 ==
LOC: JD.ED 17:32 → JD.MS 23:29
PROVIDERS: ADMIT Internal Medicine Cardiovascular Disease; ATTEND Internal Medicine Cardiovascular Disease
DX: E11.69 Type 2 diabetes mellitus with other specified complication (principal); L03.115 Cellulitis of right lower limb; E11.40 Type 2 diabetes mellitus with diabetic neuropathy, unspecified; M86.9 Osteomyelitis, unspecified; E87.1 Hypo-osmolality and hyponatremia; R78.81 Bacteremia; I10 Essential (primary) hypertension; K52.1 Toxic gastroenteritis and colitis; E11.621 Type 2 diabetes mellitus with foot ulcer; L97.519 Non-pressure chronic ulcer of other part of right foot with unspecified severity; M19.90 Unspecified osteoarthritis, unspecified site; E03.9 Hypothyroidism, unspecified; H54.7 Unspecified visual loss; I25.10 Atherosclerotic heart disease of native coronary artery without angina pectoris; E11.42 Type 2 diabetes mellitus with diabetic polyneuropathy; E11.22 Type 2 diabetes mellitus with diabetic chronic kidney disease; I12.9 Hypertensive chronic kidney disease with stage 1 through stage 4 chronic kidney disease, or unspecified chronic kidney disease; N18.4 Chronic kidney disease, stage 4 (severe); E87.6 Hypokalemia; G25.81 Restless legs syndrome; B95.61 Methicillin susceptible Staphylococcus aureus infection as the cause of diseases classified elsewhere; T36.95XA Adverse effect of unspecified systemic antibiotic, initial encounter; Z79.4 Long term (current) use of insulin; Z90.710 Acquired absence of both cervix and uterus; Z79.899 Other long term (current) drug therapy; Z87.891 Personal history of nicotine dependence; Z79.82 Long term (current) use of aspirin; Z95.5 Presence of coronary angioplasty implant and graft
CPT/HCPCS: 36415; 73701; 80053; 81001; 82962; 83605; 85007; 85027; 86140; 87040 ×2; 87075; 87205; 99285; J7050; Q9967; 73718-26-RT; 73718-RT; 80048; 80202; 83036; 83735; 83880; 85025; 87070; 87493; 96365; 96366; 97161-GP; 97165-GO; 97597-GP; 99284; A9270-GY; J1644; J1650; J1815; J1815-GY; J2543; J3370; J7030; J7040

== ENCOUNTER 2019-05-24 12:41 | Emergency (ER) | payer MEDICARE, OTHER ==
[2019-05-24 12:50] VITALS: BP 130/68; PULSE 63
[2019-05-24] MEDS ORDERED: Sodium Chloride 0.9% 10 ML Syringe FLUSH PRN (13:16)
--- NOTE | 2019-05-24 13:27 | EDM.PDOC ---
ED HPI GENERAL MEDICAL PROBLEM - General Chief Complaint: Lower Extremity Injury/Pain Stated Complaint: FOOT PAIN Time Seen by Provider: 05/24/19 13:00 Source of Information: Reports: Patient, RN Notes Reviewed History Limitations: Reports: No Limitations - History of Present Illness INITIAL COMMENTS - FREE TEXT/NARRATIVE: Patient is a 78-year-old female who presents to the ED for the evaluation of her left lower leg/foot pain. The patient notes that she has an ulcer on her left lateral foot, near the plantar surface, that she has been trying at home to get healed up. Patient notes that she has a history of diabetic neuropathy and decreased circulation to her legs, she states that she has feeling only from her mid renae and upwards on her legs on the bilateral legs. Patient has been using a medical honey gel to the wound and this does seem to be helping the wound heal however it is still rather large. This area is roughly 3 x 5 cm , there is some mild erythema and warmth to the superior portion of the ulcer on her foot. The patient's leg, is slightly erythematous, edematous as compared to the right leg, and this extends to just below her knee. Patient states that the leg is tender for the most part all the time, but when anything rubs/bumps against it, it shoots a very sharp pain, this is a new pain in nature. There is some slight discoloration to the patient's left lateral upper calf, as she states that she had an ultrasound or circulation test done in the middle of April and this is not gotten better. Patient notes that she has been staying in her house since April 29. She denies any fever/chills, SOB/cough, nausea/vomiting/diarrhea. Left Leg Pain Score (Numeric/FACES): 3 - Related Data Allergies Allergy/AdvReac Type Severity Reaction Status Date / Time Sulfa (Sulfonamide Allergy Other Verified 05/24/19 12:51 Antibiotics) Home Meds: Home Meds Furosemide [Lasix] 60 mg PO DAILY 11/16/13 [History] Isosorbide Mononitrate [Imdur] 60 mg PO DAILY 11/16/13 [History] Levothyroxine [Levothroid] 137 mcg PO DAILY 11/16/13 [History] Metoprolol Tartrate 50 mg PO DAILY 11/16/13 [History] Aspirin [Halfprin] 81 mg PO DAILY 07/28/14 [History] Biotin 10,000 mcg PO DAILY 07/28/14 [History] Ca Carb & Gluc/Mag Ox & Gluc [Calcium Magnesium Caplet] 1 tab PO TID 07/28/14 [ History] Cholecalciferol (Vitamin D3) [D3-2000] 1,000 unit PO DAILY 07/28/14 [History] Linagliptin [Tradjenta] 5 mg PO DAILY 07/28/14 [History] allopurinoL [Zyloprim] 100 mg PO DAILY 07/28/14 [History] ramipriL [Altace] 10 mg PO BEDTIME 10/22/17 [History] Clopidogrel [Plavix] 75 mg PO DAILY 10/23/17 [History] traMADol [Ultram] 100 mg PO TID PRN 10/23/17 [History] L.acidoph,Paracasei, B.lactis [Probiotic] 1 each PO DAILY 11/10/17 [History] Acetaminophen/HYDROcodone [[place] 325-5 MG] 1 tab PO Q8HR PRN #20 tablet [Rx] Doxycycline [Vibramycin] 100 mg PO BID #20 tab 05/24/19 [Rx] cephALEXin [Cephalexin] 500 mg PO TID #30 capsule 05/24/19 [Rx] Past Medical History HEENT History: Reports: Impaired Vision Cardiovascular History: Reports: Hypertension Other Cardiovascular History: PTCA with stent Genitourinary History: Reports: Other (See Below) Other Genitourinary History: "poor kidney function" per report 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: Musculoskeletal History: Reports: Arthritis Neurological History: Reports: Neuropathy, Diabetic Endocrine/Metabolic History: Reports: Diabetes, Type II, Hypothyroidism Other Endocrine/Metabolic History: Hypothyroidism Dermatologic History: Reports: Cellulitis, Other (See Below) Other Dermatologic History: diabetic ulcer - Past Surgical History HEENT Surgical History: Reports: Cataract Surgery Female Surgical History: Reports: Hysterectomy Musculoskeletal Surgical History: Reports: Carpal Tunnel Other Musculoskeletal Surgeries/Procedures:: Bilateral hand carpal tunnel surgery Social & Family History - Family History Family Medical History: Noncontributory - Tobacco Use Smoking Status *Q: Never Smoker - Caffeine Use Caffeine Use: Reports: Coffee, Soda, Tea Other Caffeine Use: daily Review of Systems - Review of Systems Review Of Systems: See Below Constitutional: Denies: Chills, Fever Respiratory: Denies: Shortness of Breath, Cough Cardiovascular: Denies: Chest Pain GI/Abdominal: Denies: Diarrhea, Nausea, Vomiting Skin: Reports: Wound (3 x 5 cm diabetic ulcer to left lateral plantar foot surface) ED EXAM, GENERAL - Physical Exam Exam: See Below Exam Limited By: No Limitations General Appearance: Alert, WD/WN, No Apparent Distress Eye Exam: Bilateral Eye: EOMI, Normal Inspection, PERRL Ears: Normal External Exam Nose: Normal Inspection Throat/Mouth: Normal Inspection, Normal Lips, Normal Teeth, Normal Gums, Normal Oropharynx, Normal Voice, No Airway Compromise Head: Atraumatic, Normocephalic Neck: Normal Inspection Respiratory/Chest: No Respiratory Distress, Lungs Clear, Normal Breath Sounds, No Accessory Muscle Use, Chest Non-Tender Cardiovascular: Normal Peripheral Pulses, Regular Rate, Rhythm, No Murmur Peripheral Pulses: 1+: Dorsalis Pedis (L), Dorsalis Pedis (R) GI/Abdominal: Normal Bowel Sounds, Soft, Non-Tender, No Distention, No Mass Extremities: Normal Range of Motion, Pedal Edema (bilateral, 1+), Other ( peripheral vascular change to bilateral lower extremities. see skin for further description) Neurological: Alert, Oriented, Normal Cognition, No Motor/Sensory Deficits Psychiatric: Normal Affect, Normal Mood Skin Exam: Warm, Dry, No Rash, Ecchymosis (to left lateral calf), Erythema ( mild to left lower leg with associated warmth), Increased Warmth (left lower leg , and superior left lateral foot above the ulcer), Other (diabetic foot ulcer, roughly 3x5cm in size, not actively draining, there is some erythema to the superior portion of the wound with associated warmth.) Course - Vital Signs Last Recorded V/S: Last Vital Signs Temp 98.8 F 05/24/19 12:46 Pulse 63 05/24/19 12:46 Resp 16 05/24/19 12:46 BP 130/68 05/24/19 12:46 Pulse Ox 94 L 05/24/19 12:46 - Orders/Labs/Meds Orders: Active Orders 24 hr Category Date Time Status Peripheral IV Care [RC] . DIRECTED Care 05/24/19 13:16 Active Peripheral IV Insertion Adult [OM.PC] Stat Oth 05/24/19 13:16 Ordered Labs: Laboratory Tests 05/24/19 05/24/19 Range/Units 13:25 13:25 WBC 10.16 H (3.98-10.04) K/mm3 RBC 3.73 L (3.98-5.22) M/mm3 Hgb 10.5 L (11.2-15.7) gm/dl Hct 33.4 L (34.1-44.9) % MCV 89.5 (79.4-94.8) fl MCH 28.2 (25.6-32.2) pg MCHC 31.4 L (32.2-35.5) g/dl RDW Std Deviation 46.2 (36.4-46.3) fL Plt Count 227 D (182-369) K/mm3 MPV 8.6 L (9.4-12.3) fl Neutrophils % (Manual) 80 H (40-60) % Band Neutrophils % 0 (0-10) % Lymphocytes % (Manual) 4 L (20-40) % Atypical Lymphs % 0 % Monocytes % (Manual) 11 H (2-10) % Eosinophils % (Manual) 2 (0.7-5.8) % Basophils % (Manual) 3 H (0.1-1.2) Platelet Estimate Adequate Hypochromasia 2+ moderate Microcytosis 2+ moderate RBC Morph Comment Abnormal Sodium 137 (136-145) mEq/L Potassium 3.8 (3.5-5.1) mEq/L Chloride 101 (98-107) mEq/L Carbon Dioxide 29 (21-32) mEq/L Anion Gap 10.8 (5-15) BUN 50 H (7-18) mg/dL Creatinine 2.0 H (0.55-1.02) mg/dL Est Cr Clr Drug Dosing 20.02 mL/min Estimated GFR (MDRD) 24 (>60) mL/min BUN/Creatinine Ratio 25.0 H (14-18) Glucose 158 H (83-115) mg/dL Calcium 9.3 (8.5-10.1) mg/dL Total Bilirubin 0.4 (0.2-1.0) mg/dL AST 18 (15-37) U/L ALT 21 (14-59) U/L Alkaline Phosphatase 42 L (46-116) U/L Total Protein 6.6 (6.4-8.2) g/dl Albumin 2.7 L (3.4-5.0) g/dl Globulin 3.9 gm/dL Albumin/Globulin Ratio 0.7 L (1-2) Meds: Medications Discontinued Medications Generic Name Dose Route Start Last Admin Trade Name Mitchq PRN Reason Stop Dose Admin Sodium Chloride 10 ml 05/24/19 13:16 05/24/19 13:36 Saline Flush FLUSH 10 ml ASDIRECTED PRN Administration Keep Vein Open - Re-Assessments/Exams Free Text/Narrative Re-Assessment/Exam: 05/24/19 13:34 Patient presents to the ED for left lower leg pain. I did order an ultrasound for evaluation of the leg, and some baseline labs to rule out infection. 05/24/19 14:58 The patient ultrasound is done, and demonstrates no sign of a DVT, which is reassuring. 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 I am questioning whether or not she is got a mild infection to her ulcer on her left foot. Patient will be placed on cephalexin 500 mg every 8 hours for the next 10 days with the Doxycycline 100 mg twice daily for the next 10 days as well. We will have her follow-up with her regular provider sometime this midweek to schedule appointment to reassess the wound and make sure it is healing appropriately, or get home health nursing involved for appropriate wound management. Departure - Departure Time of Disposition: 15:08 Disposition: Home, Self-Care 01 Condition: Fair Clinical Impression: Diabetic infection of left foot - Discharge Information *PRESCRIPTION DRUG MONITORING PROGRAM REVIEWED*: No *COPY OF PRESCRIPTION DRUG MONITORING REPORT IN PATIENT JOO: No Prescriptions: cephALEXin [Cephalexin] 500 mg PO TID #30 capsule Doxycycline [Vibramycin] 100 mg PO BID #20 tab Instructions: Diabetes Mellitus and Foot Care Referrals: Baudilio Ty MD [Primary Care Provider] - Forms: ED Department Discharge Additional Instructions: You were evaluated in the ER today regarding your left lower leg pain. You had an ultrasound done today and it does not demonstrate any sort of a DVT. Your laboratory evaluation was consistent with a mild infection due to the diabetic foot ulcer you have on your left foot. You will be started on 2 different antibiotics, 1 will be cephalexin 500 mg every 8 hours for the next 10 days, and the other will be doxycycline 100 mg twice daily for the next 10 days. This will be electronically prescribed to the [place] pharmacy located in the [facility]. As it is hard for you to get out of your vehicle, recommend that you have a family member go get the medication for you and bring it to your house and you can start taking as prescribed. Please keep an eye on the foot wound and apply the salve that you have been using to help promote healing. Please also continue to use her JERZY hose for lower leg edema, and try to elevate your legs as much as possible, you may also do calf pumps to help prevent blood clots in the legs. Recommend you call your primary care physician, Dr. Ty, the beginning of next week for a follow-up appointment to make sure that the ulcer is healing in an appropriate fashion. You may want to think about the possibility of home health nursing for wound management to help provide further wound management in your home. You may take your previously prescribed opioid pain medication for further pain relief, please take as directed. Please return to the ER at any time if symptoms should change or worsen. Sepsis Event Note - Evaluation Sepsis Screening Result: No Definite Risk - Focused Exam Vital Signs: Vital Signs Temp Pulse Resp BP Pulse Ox 05/24/19 12:46 98.8 F 63 16 130/68 94 L Date Exam was Performed: 05/24/19 Time Exam was Performed: 22:28 - My Orders Last 24 Hours: My Active Orders 05/24/19 13:16 Peripheral IV Care [RC] . DIRECTED Peripheral IV Insertion Adult [OM.PC] Stat - Assessment/Plan Last 24 Hours: My Active Orders 05/24/19 13:16 Peripheral IV Care [RC] . DIRECTED Peripheral IV Insertion Adult [OM.PC] Stat
--- NOTE | 2019-05-24 14:57 | US ---
Left lower extremity deep venous ultrasound: Duplex and color Doppler imaging was obtained of the left common femoral, proximal greater saphenous, superficial femoral, popliteal, posterior tibial and peroneal veins. Right common femoral vein was also evaluated. Findings: Normal phasic flow, augmentation and compression is seen. Mild subcutaneous edema is seen within the left calf. Left inguinal lymph node is seen which appears mostly fat replaced and felt to be incidental. Impression: 1. Findings believed to be incidental as noted above. 2. No evidence of deep venous thrombosis within left lower extremity or within the right common femoral vein. Diagnostic code #2 Study was dictated in MDT
== END 2019-05-24 15:32 | disposition home or self-care (01) ==
LOC: SUPCPDRO 12:41 → JD.ED 12:41
DX: E11.621 Type 2 diabetes mellitus with foot ulcer (principal); L97.529 Non-pressure chronic ulcer of other part of left foot with unspecified severity; E11.40 Type 2 diabetes mellitus with diabetic neuropathy, unspecified; E03.9 Hypothyroidism, unspecified; M19.90 Unspecified osteoarthritis, unspecified site; I10 Essential (primary) hypertension; Z88.2 Allergy status to sulfonamides; Z79.899 Other long term (current) drug therapy; Z79.82 Long term (current) use of aspirin; Z79.02 Long term (current) use of antithrombotics/antiplatelets; Z79.84 Long term (current) use of oral hypoglycemic drugs
CPT/HCPCS: 36415; 80053; 85007; 85027; 93971-26-LT; 93971-LT; 99283; 99284-25

== ENCOUNTER 2020-11-09 13:37 | Emergency (ER) | payer MEDICARE, OTHER ==
[2020-11-09] MEDS ORDERED: Sodium Chloride 0.9% 10 ML Syringe FLUSH PRN (14:12)
[2020-11-09] MEDS ORDERED: Ondansetron 4 MG/2 ML SDV IVPUSH ONE (14:13)
[2020-11-09] MEDS ORDERED: Sodium Chloride 0.9% 1,000 ML IV SCH (14:15)
--- NOTE | 2020-11-09 17:52 | CR ---
Chest: Frontal view of the chest was obtained. Comparison: Prior chest x-ray of 06/17/19. Heart is felt to be slightly enlarged. Upper mediastinum is within normal limits. Lungs are clear with no acute parenchymal change. No acute bony abnormality is appreciated. Impression: 1. Heart is slightly enlarged. 2. Nothing acute is otherwise seen on frontal chest x-ray. Diagnostic code #2
[2020-11-09] MEDS ORDERED: Cephalexin 500 MG Cap PO ONE (18:50)
--- NOTE | 2020-11-09 18:52 | EDM.PDOC ---
ED HPI GENERAL MEDICAL PROBLEM - General Chief Complaint: General Stated Complaint: NAUSEA/WEAKNESS Time Seen by Provider: 11/09/20 14:00 Source of Information: Reports: Patient, RN Notes Reviewed - History of Present Illness INITIAL COMMENTS - FREE TEXT/NARRATIVE: 80 yr old female comes in with sx of generalized weakness, fatigue, low energy, not feeling well. She dose have hx of renal insufficiency, Htn, diabetes, CAD, chronic leg ulcers. No recent fever or chills. No coughing or shortness of breath. She has also had voiding frequency going only small amts at a time despite her renal insufficiency. - Related Data Allergies Allergy/AdvReac Type Severity Reaction Status Date / Time Sulfa (Sulfonamide Allergy Other Verified 11/09/20 13:59 Antibiotics) Home Meds: Home Meds Furosemide [Lasix] 60 mg PO DAILY 11/16/13 [History] Isosorbide Mononitrate [Imdur] 60 mg PO DAILY 11/16/13 [History] Levothyroxine [Levothroid] 137 mcg PO DAILY 11/16/13 [History] Metoprolol Tartrate 50 mg PO DAILY 11/16/13 [History] Aspirin [Halfprin] 81 mg PO DAILY 07/28/14 [History] Biotin 10,000 mcg PO DAILY 07/28/14 [History] Calcium Carb,Gluc/Mag Ox,Gluc [Calcium Magnesium Caplet] 1 tab PO TID 07/28/14 [History] Cholecalciferol (Vitamin D3) [D3-2000] 1,000 unit PO DAILY 07/28/14 [History] Linagliptin [Tradjenta] 5 mg PO DAILY 07/28/14 [History] allopurinoL [Zyloprim] 100 mg PO DAILY 07/28/14 [History] ramipriL [Altace] 10 mg PO BEDTIME 10/22/17 [History] Clopidogrel [Plavix] 75 mg PO DAILY 10/23/17 [History] traMADol [Ultram] 100 mg PO TID PRN 10/23/17 [History] L.acidoph,Paracasei, B.lactis [Probiotic] 1 each PO DAILY 11/10/17 [History] cephALEXin [Cephalexin] 500 mg PO TID #14 capsule 11/09/20 [Rx] Past Medical History HEENT History: Reports: Impaired Vision Cardiovascular History: Reports: Hypertension Other Cardiovascular History: PTCA with stent Gastrointestinal History: Reports: None Genitourinary History: Reports: Other (See Below) Other Genitourinary History: "poor kidney function" per report HEAD OF DIGITAL History: Reports: Musculoskeletal History: Reports: Arthritis Neurological History: Reports: Neuropathy, Diabetic Endocrine/Metabolic History: Reports: Diabetes, Type II, Hypothyroidism Other Endocrine/Metabolic History: Hypothyroidism Immunologic History: Reports: None Dermatologic History: Reports: Cellulitis, Other (See Below) Other Dermatologic History: diabetic ulcer - Infectious Disease History Infectious Disease History: Reports: None - Past Surgical History HEENT Surgical History: Reports: Cataract Surgery Cardiovascular Surgical History: Reports: Carotid Stents Female Surgical History: Reports: Hysterectomy Endocrine Surgical History: Reports: None Neurological Surgical History: Reports: Other (See Below) Other Neurological Surgeries/Procedures: back surgery but unsure of what kind; 30 years ago Musculoskeletal Surgical History: Reports: Carpal Tunnel Other Musculoskeletal Surgeries/Procedures:: Bilateral hand carpal tunnel surgery Dermatological Surgical History: Reports: None Social & Family History - Family History Family Medical History: No Pertinent Family History - Tobacco Use Tobacco Use Status *Q: Former Tobacco User Used Tobacco, but Quit: Yes Month/Year Tobacco Last Used: 02/2004 - Caffeine Use Caffeine Use: Reports: None Other Caffeine Use: daily - Recreational Drug Use Recreational Drug Use: No ED ROS GENERAL - Review of Systems Review Of Systems: See Below Constitutional: Reports: Weakness, Fatigue. Denies: Fever, Chills, Diaphoresis HEENT: Reports: No Symptoms Respiratory: Denies: Shortness of Breath, Cough Cardiovascular: Denies: Chest Pain Endocrine: Reports: Fatigue GI/Abdominal: Denies: Abdominal Pain, Diarrhea, Vomiting Musculoskeletal: Reports: Back Pain Skin: Reports: Other (chronic ulcers bilat lower legs) Neurological: Reports: Dizziness ED EXAM, GENERAL - Physical Exam Exam: See Below General Appearance: Alert, No Apparent Distress Eye Exam: Bilateral Eye: PERRL Head: Atraumatic Neck: Supple Respiratory/Chest: No Respiratory Distress, Lungs Clear, Normal Breath Sounds. No: Rales, Rhonchi, Wheezing Cardiovascular: Regular Rate, Rhythm GI/Abdominal: Non-Tender Back Exam: No: CVA Tenderness (L), CVA Tenderness (R) Extremities: Other (bilat scattered areas of superfiscial skin breakdown anterior, medial and lateral lower legs, not weeping at time of exam). No: Pedal Edema Neurological: Alert, Oriented, Other (no focal weakness) Skin Exam: Warm, Dry, Normal Color Course - Vital Signs Last Recorded V/S: Last Vital Signs Temp 96.9 F 11/09/20 13:56 Pulse 99 11/09/20 19:05 Resp 18 11/09/20 19:05 BP 129/93 H 11/09/20 19:05 Pulse Ox 95 11/09/20 19:05 - Orders/Labs/Meds Orders: Active Orders 24 hr Category Date Time Status Peripheral IV Care [RC] . DIRECTED Care 11/09/20 14:13 Active Consult to [Consult to Home Health] [CONS] Routine Cons 11/09/20 19:19 Active CULTURE URINE [MREF] Stat Lab 11/09/20 15:21 Received Sodium Chloride 0.9% [Normal Saline] 1,000 ml Med 11/09/20 14:15 Active IV ONETIME Sodium Chloride 0.9% [Saline Flush] Med 11/09/20 14:12 Active 10 ml FLUSH ASDIRECTED PRN Peripheral IV Insertion Adult [OM.PC] Stat Oth 11/09/20 14:13 Ordered Medication Orders Sodium Chloride (Normal Saline) 1,000 mls @ 999 mls/hr IV ONETIME CHRISTIANO Last Admin: 11/09/20 14:41 Dose: 999 mls/hr Documented by: GE Sodium Chloride (Sodium Chloride 0.9% 10 Ml Syringe) 10 ml FLUSH ASDIRECTED PRN PRN Reason: Keep Vein Open Last Admin: 11/09/20 16:01 Dose: 10 ml Documented by: GE Labs: Laboratory Tests 11/09/20 11/09/20 11/09/20 Range/Units 14:51 14:51 14:51 WBC 6.86 (3.98-10.04) K/mm3 RBC 3.86 L (3.98-5.22) M/mm3 Hgb 11.2 (11.2-15.7) gm/dl Hct 35.3 (34.1-44.9) % MCV 91.5 (79.4-94.8) fl MCH 29.0 (25.6-32.2) pg MCHC 31.7 L (32.2-35.5) g/dl RDW Std Deviation 50.3 H (36.4-46.3) fL Plt Count 199 (182-369) K/mm3 MPV 8.7 L (9.4-12.3) fl Neut % (Auto) 82.7 H (34.0-71.1) % Lymph % (Auto) 7.4 L (19.3-51.7) % [place] % (Auto) 9.2 (4.7-12.5) % Eos % (Auto) 0.3 L (0.7-5.8) Baso % (Auto) 0.1 (0.1-1.2) % Neut # (Auto) 5.67 (1.56-6.13) K/mm3 Lymph # (Auto) 0.51 L (1.18-3.74) K/mm3 [place] # (Auto) 0.63 H (0.24-0.36) K/mm3 Eos # (Auto) 0.02 L (0.04-0.36) K/mm3 Baso # (Auto) 0.01 (0.01-0.08) K/mm3 Sodium 130 L D (136-145) mEq/L Potassium 3.5 (3.5-5.1) mEq/L Chloride 88 L D (98-107) mEq/L Carbon Dioxide 28 (21-32) mEq/L Anion Gap 17.5 H (5-15) BUN 101 H D (7-18) mg/dL Creatinine 4.1 H D (0.55-1.02) mg/dL Est Cr Clr Drug Dosing 9.45 mL/min Estimated GFR (MDRD) 10 (>60) mL/min BUN/Creatinine Ratio 24.6 H (14-18) Glucose 201 H (70-99) mg/dL Calcium 8.9 (8.5-10.1) mg/dL Total Bilirubin 0.6 (0.2-1.0) mg/dL AST 43 H (15-37) U/L ALT 32 (14-59) U/L Alkaline Phosphatase 40 L (46-116) U/L C-Reactive Protein 22.6 H* (<1.0) mg/dL Total Protein 7.3 (6.4-8.2) g/dl Albumin 3.0 L (3.4-5.0) g/dl Globulin 4.3 gm/dL Albumin/Globulin Ratio 0.7 L (1-2) Urine Color (Yellow) Urine Appearance (Clear) Urine pH (5.0-8.0) Ur Specific [place] (1.005-1.030) Urine Protein (Negative) Urine Glucose (UA) (Negative) Urine Ketones (Negative) Urine Occult Blood (Negative) Urine Nitrite (Negative) Urine Bilirubin (Negative) Urine Urobilinogen (0.2-1.0) Ur Leukocyte Esterase (Negative) Urine RBC (0-5) /hpf Urine WBC (0-5) /hpf Ur Squamous Epith Cells (0-5) /hpf Urine Bacteria (FEW) /hpf Urine Mucus (FEW) /hpf SARS-CoV-2 RNA (JO ANN) (NEGATIVE) 11/09/20 11/09/20 Range/Units 15:21 17:34 WBC (3.98-10.04) K/mm3 RBC (3.98-5.22) M/mm3 Hgb (11.2-15.7) gm/dl Hct (34.1-44.9) % MCV (79.4-94.8) fl MCH (25.6-32.2) pg MCHC (32.2-35.5) g/dl RDW Std Deviation (36.4-46.3) fL Plt Count (182-369) K/mm3 MPV (9.4-12.3) fl Neut % (Auto) (34.0-71.1) % Lymph % (Auto) (19.3-51.7) % [place] % (Auto) (4.7-12.5) % Eos % (Auto) (0.7-5.8) Baso % (Auto) (0.1-1.2) % Neut # (Auto) (1.56-6.13) K/mm3 Lymph # (Auto) (1.18-3.74) K/mm3 [place] # (Auto) (0.24-0.36) K/mm3 Eos # (Auto) (0.04-0.36) K/mm3 Baso # (Auto) (0.01-0.08) K/mm3 Sodium (136-145) mEq/L Potassium (3.5-5.1) mEq/L Chloride (98-107) mEq/L Carbon Dioxide (21-32) mEq/L Anion Gap (5-15) BUN (7-18) mg/dL Creatinine (0.55-1.02) mg/dL Est Cr Clr Drug Dosing mL/min Estimated GFR (MDRD) (>60) mL/min BUN/Creatinine Ratio (14-18) Glucose (70-99) mg/dL Calcium (8.5-10.1) mg/dL Total Bilirubin (0.2-1.0) mg/dL AST (15-37) U/L ALT (14-59) U/L Alkaline Phosphatase (46-116) U/L C-Reactive Protein (<1.0) mg/dL Total Protein (6.4-8.2) g/dl Albumin (3.4-5.0) g/dl Globulin gm/dL Albumin/Globulin Ratio (1-2) Urine Color Light yellow (Yellow) Urine Appearance Clear (Clear) Urine pH 6.0 (5.0-8.0) Ur Specific [place] 1.020 (1.005-1.030) Urine Protein Trace H (Negative) Urine Glucose (UA) Negative (Negative) Urine Ketones Negative (Negative) Urine Occult Blood Negative (Negative) Urine Nitrite Negative (Negative) Urine Bilirubin Negative (Negative) Urine Urobilinogen 0.2 (0.2-1.0) Ur Leukocyte Esterase Trace H (Negative) Urine RBC 0-5 (0-5) /hpf Urine WBC 0-5 (0-5) /hpf Ur Squamous Epith Cells 5-10 H (0-5) /hpf Urine Bacteria Moderate H (FEW) /hpf Urine Mucus Few (FEW) /hpf SARS-CoV-2 RNA (JO ANN) Negative (NEGATIVE) Meds: Medications Generic Name Dose Route Start Last Admin Trade Name Freq PRN Reason Stop Dose Admin Sodium Chloride 1,000 mls @ 999 mls/hr 11/09/20 14:15 11/09/20 14:41 Normal Saline IV 999 mls/hr ONETIME CHRISTIANO Administration Sodium Chloride 10 ml 11/09/20 14:12 11/09/20 16:01 Sodium Chloride 0.9% 10 Ml Syringe FLUSH 10 ml ASDIRECTED PRN Administration Keep Vein Open Discontinued Medications Generic Name Dose Route Start Last Admin Trade Name Freq PRN Reason Stop Dose Admin Cephalexin 500 mg 11/09/20 18:50 11/09/20 19:04 Cephalexin 500 Mg Cap PO 11/09/20 18:51 500 mg ONETIME ONE Administration Ondansetron HCl 4 mg 11/09/20 14:13 11/09/20 14:42 Ondansetron 4 Mg/2 Ml Sdv IVPUSH 11/09/20 14:14 4 mg ONETIME ONE Administration - Re-Assessments/Exams Free Text/Narrative Re-Assessment/Exam: 11/09/20 19:31 WBC 6,800. Hgb 11.1. Na 130. Creat 4.1, bUN 101. glucose 201. covid neg. Have given 500 ml bolus NS. She does feel better after that. CXR does not show CHF, UA does show mild UTI, culture done, will start cephalexin 500 mg TID. Have also written an order for Home health consult. Other than medical visits she is home bound. She should definitely benefit from home health nursing care with regard to her legs and also helping manage her fluid balance, worsening renal insufficiency. Departure - Departure Time of Disposition: 18:46 Disposition: Home, Self-Care 01 Condition: Fair Clinical Impression: Hyponatremia, Renal insufficiency UTI (urinary tract infection) Qualifiers: Urinary tract infection type: acute cystitis Hematuria presence: without hematuria Qualified Code(s): N30.00 - Acute cystitis without hematuria Bilateral leg ulcer Qualifiers: Non-pressure ulcer stage: limited to breakdown of skin Qualified Code(s): L97.911 - Non-pressure chronic ulcer of unspecified part of right lower leg limited to breakdown of skin - Discharge Information Prescriptions: cephALEXin [Cephalexin] 500 mg PO TID #14 capsule Instructions: Hyponatremia, [id number], Urinary Tract Infection, Adult, [id number] Referrals: Baudilio Ty MD [Primary Care Provider] - Forms: ED Department Discharge Additional Instructions: Cephalexin 500 mg 3 times daily. Prescription has been sent to [facility] [employer] [facility]. Continue other medications as prescribed. Rest and elevate legs as much as possible. See Dr Ty or Sunday if possible. Call for appointment. If unable to get in to see Dr Ty see one of the other clinic medical providers. Return to ED as needed if symptoms worsening in any way. An order for Home Health Consult has been written. Hopefully they will see you to do a needs assessment in the next 1 to 3 days. Sepsis Event Note (ED) - Focused Exam Vital Signs: Vital Signs Temp Pulse Pulse Resp BP Pulse Ox 11/09/20 19:05 99 18 129/93 H 95 11/09/20 13:56 96.9 F 76 16 124/40 L 92 L - My Orders Last 24 Hours: My Active Orders 11/09/20 14:12 Sodium Chloride 0.9% [Saline Flush] 10 ml FLUSH ASDIRECTED PRN 11/09/20 14:13 Peripheral IV Care [RC] . DIRECTED Peripheral IV Insertion Adult [OM.PC] Stat 11/09/20 14:15 Sodium Chloride 0.9% [Normal Saline] 1,000 ml IV ONETIME 11/09/20 15:21 CULTURE URINE [MREF] Stat 11/09/20 19:19 Consult to [Consult to Home Health] [CONS] Routine - Assessment/Plan Last 24 Hours: My Active Orders 11/09/20 14:12 Sodium Chloride 0.9% [Saline Flush] 10 ml FLUSH ASDIRECTED PRN 11/09/20 14:13 Peripheral IV Care [RC] . DIRECTED Peripheral IV Insertion Adult [OM.PC] Stat 11/09/20 14:15 Sodium Chloride 0.9% [Normal Saline] 1,000 ml IV ONETIME 11/09/20 15:21 CULTURE URINE [MREF] Stat 11/09/20 19:19 Consult to [Consult to Home Health] [CONS] Routine
[2020-11-09 19:07] VITALS: BP 129/93; PULSE 99
== END 2020-11-09 19:38 | disposition home or self-care (01) ==
LOC: JD.ED 13:37
DX: N28.9 Disorder of kidney and ureter, unspecified (principal); E87.1 Hypo-osmolality and hyponatremia; N30.00 Acute cystitis without hematuria; L97.911 Non-pressure chronic ulcer of unspecified part of right lower leg limited to breakdown of skin; I10 Essential (primary) hypertension; E03.9 Hypothyroidism, unspecified; E11.9 Type 2 diabetes mellitus without complications; Z79.82 Long term (current) use of aspirin; Z79.899 Other long term (current) drug therapy; Z87.891 Personal history of nicotine dependence; Z20.822 Contact with and (suspected) exposure to COVID-19; Z88.2 Allergy status to sulfonamides
CPT/HCPCS: 36415; 71045; 80053; 81001; 85025; 86140; 87086; 96374; 99285; A9270; J2405; J7030; U0002

== ENCOUNTER 2023-09-24 11:36 | Observation (INO) | payer MEDICARE, OTHER ==
[2023-09-24] MEDS: traMADol 50 MG Tab PO ONE (13:06)
[2023-09-24] MEDS: predniSONE 20 MG Tab PO ONE (13:06)
[2023-09-24] MEDS: HYDROmorphone 0.5 MG/0.5 ML Syringe IVPUSH ONE (14:14)
[2023-09-24] MEDS: Sodium Chloride 0.9% 10 ML Syringe FLUSH PRN (14:24)
[2023-09-24 15:20] LABS: APPEARANCE,URINE CLEAR (Clear); BILIRUBIN,URINE NEGATIVE (Negative); COLOR,URINE YELLOW (Yellow); GLUCOSE,URINE NEGATIVE (Negative); KETONES,URINE NEGATIVE (Negative); LEUKOCYTE ESTERASE,URINE NEGATIVE (Negative); NITRITE,URINE NEGATIVE (Negative); OCCULT BLOOD,URINE NEGATIVE (Negative); PROTEIN,URINE TRACE (Negative); UROBILINOGEN,URINE 0.2 (0.2-1.0)
[2023-09-24 15:27] LABS: BASOPHILS ABSOLUTE AUTO 0.1 K/mm3 (0.0-0.2); BASOPHILS PERCENT AUTO 0.8 % (0.0-1.0); EOSINOPHILS ABSOLUTE AUTO 0.2 K/mm3 (0.0-0.4); EOSINOPHILS PERCENT AUTO 3.2 % (0.0-6.0); HEMATOCRIT 38.5 % (37.0-47.0); HEMOGLOBIN 12.5 gm/dl (12.0-16.0); IMMATURE GRAN ABSOLUTE AUTO 0.02 K/mm3 (0.00-0.05); IMMATURE GRAN PERCENT AUTO 0.3 % (0.0-0.4); LYMPHOCYTES ABSOLUTE AUTO 0.8 K/mm3 (1.0-4.8); LYMPHOCYTES PERCENT AUTO 11.3 % (24.0-44.0); MEAN CORPUSCULAR HEMOGLOBIN 30.2 pg (28.0-32.0); MEAN CORPUSCULAR HGB CONC 32.5 g/dl (32.0-36.0); MEAN PLATELET VOLUME 9.1 fl (9.4-12.3); MONOCYTES ABSOLUTE AUTO 0.4 K/mm3 (0.0-0.8); MONOCYTES PERCENT AUTO 6.5 % (0.0-8.0); NEUTROPHILS ABSOLUTE AUTO 5.2 K/mm3 (1.8-7.7); NEUTROPHILS PERCENT AUTO 77.9 % (41.0-71.0); PLATELET COUNT,PLT 211 K/mm3 (150-400); RED BLOOD CELL COUNT 4.14 M/mm3 (4.10-5.30); WHITE BLOOD CELL COUNT,WBC 6.63 K/mm3 (3.9-11.3)
[2023-09-24 16:12] LABS: A/G RATIO 0.9 (1-2); ALBUMIN 3.2 g/dl (3.4-5.0); BILIRUBIN TOTAL 0.6 mg/dL (0.2-1.0); BUN/CREATININE RATIO 18.2 (14-18); CALCIUM 9.3 mg/dL (8.5-10.1); CREATININE 2.2 mg/dL (0.55-1.02); EST CRCL DRUG DOSING (CG) 16.03 mL/min; PROTEIN TOTAL,TP 6.6 g/dl (6.4-8.2)
[2023-09-24 16:28] LABS: BACTERIA,URINE FEW /hpf (FEW); MUCUS,URINE FEW /hpf (FEW); RBC,URINE 0-5 /hpf (0-5); SQUAMOUS EPITHELIAL CELLS,UR 0-5 /hpf (0-5); WBC,URINE 0-5 /hpf (0-5)
[2023-09-24] MEDS: Acetaminophen/HYDROcodone 325-5 MG Tab PO ONE (16:34)
[2023-09-24] MEDS: Ondansetron 4 MG Tab.DIS PO PRN (18:26)
[2023-09-24] MEDS: Insulin Lispro 100 Unit/ML 3 ML KwikPen SUBCUT SCH (22:19)
[2023-09-25] MEDS: Acetaminophen/HYDROcodone 325-5 MG Tab PO PRN (00:47)
[2023-09-25] MEDS ORDERED: Levothyroxine 112 MCG Tab PO SCH (06:00)
[2023-09-25] MEDS: Levothyroxine 112 MCG Tab PO SCH (06:16)
[2023-09-25] MEDS: atorvaSTATin 20 MG Tab PO SCH (07:51)
[2023-09-25] MEDS: Insulin Glargine,Human Rec. Analog 100 Units/ML 3 ML Pen SUBCUT SCH (07:53)
[2023-09-25] MEDS: Insulin Lispro 100 Unit/ML 3 ML KwikPen SUBCUT SCH (07:55)
[2023-09-25] MEDS: Clopidogrel 75 MG Tab PO SCH (08:03)
[2023-09-25] MEDS: Aspirin 81 MG Tab.EC PO SCH (08:04)
[2023-09-25] MEDS: Torsemide 20 MG Tab PO SCH ×2 (08:04→17:29)
[2023-09-25] MEDS: Ferrous Sulfate 324 MG Tab.EC PO SCH (08:04)
[2023-09-25] MEDS ORDERED: Polyethylene Glycol 3350 Powder 17 GM Packet PO PRN (08:32)
[2023-09-25] MEDS ORDERED: Docusate Sodium 100 MG Cap PO PRN (08:32)
[2023-09-25] MEDS ORDERED: Acetaminophen 325 MG Tab PO PRN (08:32)
[2023-09-25] MEDS ORDERED: BIOTIN 5 MG PO SCH ×2 (09:00)
[2023-09-25] MEDS: Enoxaparin 30 MG/0.3 ML Syringe SUBCUT SCH (09:01)
[2023-09-25] MEDS: predniSONE 20 MG Tab PO ONE (09:01)
[2023-09-25] MEDS: Diclofenac Sodium 1% Gel 100 GM Tube TOP SCH (09:01)
[2023-09-25] MEDS: Calcitriol 0.25 MCG Cap PO SCH (09:01)
[2023-09-25] MEDS: Lidocaine 4% 1 each Patch TOP SCH (13:07)
[2023-09-25] MEDS: Gabapentin 100 MG Cap PO SCH (15:00)
[2023-09-26 05:14] LABS: ANION GAP 14.1 (5-15); BUN/CREATININE RATIO 21.7 (14-18); CALCIUM 9.2 mg/dL (8.5-10.1); CREATININE 2.4 mg/dL (0.55-1.02); EST CRCL DRUG DOSING (CG) 14.69 mL/min; POTASSIUM,K 4.1 mEq/L (3.5-5.1)
[2023-09-26] MEDS: Polyethylene Glycol 3350 Powder 17 GM Packet PO SCH (11:36)
[2023-09-26] MEDS: Sennosides/Docusate Sodium 50-8.6 MG Tab PO SCH (11:36)
[2023-09-26] MEDS: Pantoprazole 40 MG Tab.CR PO SCH (11:36)
[2023-09-26] MEDS: predniSONE 20 MG Tab PO ONE (11:37)
[2023-09-26] MEDS: Bisacodyl 10 MG Supp RECTAL PRN (16:33)
[2023-09-27] MEDS: traMADol 50 MG Tab PO PRN (03:52)
[2023-09-27 05:12] LABS: ANION GAP 13.8 (5-15); BUN/CREATININE RATIO 24.8 (14-18); CALCIUM 9.5 mg/dL (8.5-10.1); CREATININE 2.3 mg/dL (0.55-1.02); EST CRCL DRUG DOSING (CG) 15.33 mL/min; POTASSIUM,K 3.8 mEq/L (3.5-5.1)
[2023-09-27] MEDS: predniSONE 20 MG Tab PO SCH (06:29)
[2023-09-27] MEDS ORDERED: oxyCODONE 5 MG Tab PO PRN (09:29)
[2023-09-27] MEDS ORDERED: Acetaminophen 325 MG Tab PO PRN (09:29)
[2023-09-27] MEDS: Acetaminophen 325 MG Tab PO SCH (15:44)
[2023-09-27] MEDS: Docusate Sodium 100 MG Cap PO SCH (21:14)
[2023-09-27] MEDS: Melatonin 3 MG Tab PO SCH (21:15)
[2023-09-28] MEDS: predniSONE 10 MG Tab PO SCH (05:58)
[2023-09-28 16:46] VITALS: BP 122/57; PULSE 76
== END 2023-09-28 19:20 | disposition home or self-care (01) ==
LOC: JD.ED 11:36 → JD.MS 18:09
PROVIDERS: ADMIT Internal Medicine; ATTEND Internal Medicine
DX: M54.42 Lumbago with sciatica, left side (principal); R26.2 Difficulty in walking, not elsewhere classified; M79.605 Pain in left leg; E11.22 Type 2 diabetes mellitus with diabetic chronic kidney disease; I12.9 Hypertensive chronic kidney disease with stage 1 through stage 4 chronic kidney disease, or unspecified chronic kidney disease; N18.4 Chronic kidney disease, stage 4 (severe); M19.90 Unspecified osteoarthritis, unspecified site; I25.10 Atherosclerotic heart disease of native coronary artery without angina pectoris; G62.9 Polyneuropathy, unspecified; R93.429 Abnormal radiologic findings on diagnostic imaging of unspecified kidney; Z79.82 Long term (current) use of aspirin; E03.9 Hypothyroidism, unspecified; Z79.899 Other long term (current) drug therapy; Z79.4 Long term (current) use of insulin; Z88.2 Allergy status to sulfonamides; Z87.891 Personal history of nicotine dependence; Z98.890 Other specified postprocedural states; Z98.61 Coronary angioplasty status
CPT/HCPCS: 36415; 72131; 72192; 80048; 80053; 81001; 82947; 83735; 85025; 96372; 97110; 97161; A9270; G0378; J1170; J1650; J1815; J3490; J7512